=== PATIENT | female | born 1930 | race African-American/Black ===

== ENCOUNTER 2016-12-18 15:03 | Emergency (ER) | payer MEDICARE, BC ==
[~2016-12-18] VITALS: Ht 172.7 cm; Wt 77.2 kg
[~2016-12-18 15:03] MED LIST: AMLO5TAB96 PO; CITA-48 PO; DIAZ2 PO; FERR325T PO; FURO10S PO; LOSA100T PO; MEMA10 PO; OMEP20TA PO; QUET100 PO; SENN1TAB11 PO; ZOCO40TA PO
[2016-12-18 15:04] VITALS: BP 128/61; PULSE 78; RESP 20; TEMP 98.5; O2SAT 98
--- NOTE | 2016-12-18 15:10 | PD ---
Physical Exam Time Seen by Provider: 15:09 Narrative 86 y/o female here with L ankle pain after slipping 3 days ago. Denies any other injuries. Vital signs reviewed. Seen at triage desk. Awaiting bed placement. Data Data Last Documented VS Vital Signs Date Time Temp Pulse Resp B/P Pulse Ox O2 Delivery O2 Flow Rate FiO2 12/18/16 15:04 98.5 78 20 128/61 98 MDM Medical Record Reviewed: Yes Supervised Visit with MARIA ESTHER: Tommy Dave December 18, 2016 15:10
--- NOTE | 2016-12-18 16:37 | RADRPT ---
EXAM DATE/TIME: 12/18/2016 15:21 [facility] COMPARISON: No previous studies available for comparison. INDICATIONS : Left foot pain and swelling after tripping her bathroom. MEDICAL HISTORY : None. SURGICAL HISTORY : None. ENCOUNTER: Initial ACUITY: 1 day PAIN SCORE: 10/10 LOCATION: Left foot. FINDINGS: Three view examination of the left foot demonstrates no soft tissue swelling, dislocation, or fractur e. The tarsal bones appear intact. Osteoarthritis involving the first metatarsal-phalangeal joint. The interphalangeal and metatarsophalangeal joints are intact. The calcaneus is intact. Bony minera lization is reduced. CONCLUSION: No acute disease. Kike Miranda Jr., MD on December 18, 2016 at 16:32 Board Certified Radiologist. This report was verified electronically.
--- NOTE | 2016-12-18 16:44 | RADRPT ---
EXAM DATE/TIME: 12/18/2016 15:23 [facility] COMPARISON: No previous studies available for comparison. INDICATIONS : Left ankle pain and swelling after tripping in her bathroom. MEDICAL HISTORY : None. SURGICAL HISTORY : None. ENCOUNTER: Initial ACUITY: 1 day PAIN SCORE: 10/10 LOCATION: Left ankle. FINDINGS: 3 views of the left ankle reveal an acute nondisplaced fracture involving distal fibular metaphysis. No angulation or distraction. A small avulsion fracture involving the tip of the medial malleolus. No joint effusion. Soft tissue swelling most pronounced laterally. Spurring of the calcaneus. CONCLUSION: Acute fractures involving the distal fibular metaphysis as well as the medial malleolus. Kike Miranda Jr., MD on December 18, 2016 at 16:40 Board Certified Radiologist. This report was verified electronically.
[2016-12-18] MEDS ORDERED: AMLO5TAB2 PO (16:57)
[2016-12-18] MEDS ORDERED: VESI5TAB PO (16:57)
[2016-12-18] MEDS ORDERED: ZOCO40TA PO (16:57)
[2016-12-18] MEDS ORDERED: DIAZ2TAB PO (16:57)
[2016-12-18] MEDS ORDERED: UMEC1AER INH (16:57)
[2016-12-18] MEDS ORDERED: QUET-88 PO (16:57)
[2016-12-18] MEDS ORDERED: CITA40TA4 PO (16:57)
[2016-12-18] MEDS ORDERED: CYAN1TAB24 PO (16:57)
[2016-12-18] MEDS ORDERED: LOSA100T PO (16:57)
[2016-12-18] MEDS ORDERED: MEMA1TAB2 PO (16:57)
[2016-12-18] MEDS ORDERED: KRIL1CAP9 PO (16:57)
[2016-12-18] MEDS ORDERED: FOLI1CAP7 PO (16:57)
--- NOTE | 2016-12-18 17:16 | PD ---
HPI Chief Complaint: Fall Time Seen by Provider: 17:04 Travel History International Travel<30 days: Yes Contact w/Intl Traveler<30days: [place] Traveled to: [place] Traveled to known affect area: No History of Present Illness HPI 86-year-old female with PMH of HTN presents to the ED for evaluation of left ankle pain. Onset 3 days ago after the patient slipped in the bathroom. She states that she did not fall, only lost her balance and recovered. She denies hitting her head or loss of consciousness. She has been minimally ambulatory on the ankle. She endorses 1/10 pain on presentation, 9/10 on attempted ambulation. She denies numbness, tingling, weakness of the extremity. Patients daughter is at bedside and corroborates the patient's account of the incident. This is minimally ambulatory secondary to chronic knee pain. PFSH Past Medical History Arthritis: Yes (KNEES BILAT WITH STAIR CLIMBING) Heart Rhythm Problems: Yes (HX PVC) Cardiovascular Problems: Yes (HTN) High Cholesterol: Yes Diminished Hearing: No Hypertension: Yes Psychiatric: Yes (DEMENTIA) Menopausal: Yes Past Surgical History Gynecologic Surgery: Yes Hysterectomy: Yes Other Surgery: Yes (HYSTERECTOMY, HEMORROIDS) Social History Alcohol Use: No Tobacco Use: No Substance Use: No Allergies-Medications (Allergen,Severity, Reaction): Coded Allergies: Penicillin (Verified Allergy, Severe, Rash, 12/18/16) Reported Meds & Prescriptions Reported Meds & Active Scripts Active Wheelchair Elevated Leg (Device) 1 Mis Mis 1 Ea .ROUTE DIRECTED Naprosyn (Naproxen) 500 Mg Tab 500 Mg PO BID Reported Megared [place]-3 Krill Oil (Krill Oil) 500 Mg Cap 500 Mg PO DAILY B12 (Cyanocobalamin) 1,000 Mcg Tab 1,000 Mcg PO DAILY Folic Acid 800 Mcg Cap 800 Mcg PO DAILY Amlodipine (Amlodipine Besylate) 5 Mg Tab 5 Mg PO DAILY Quetiapine Fumarate ER (Quetiapine Fumarate) 200 Mg Tab 200 Mg PO HS Losartan (Losartan Potassium) 100 Mg Tab 100 Mg PO DAILY Zocor (Simvastatin) 40 Mg Tab 40 Mg PO DAILY Vesicare (Solifenacin) 5 Mg Tab 5 Mg PO DAILY Citalopram (Citalopram Hydrobromide) 40 Mg Tab 40 Mg PO DAILY Memantine 10 Mg Tab 10 Mg PO BID Diazepam 2 Mg Tab 2 Mg PO HS PRN Anoro Ellipta Inh (Umeclidinium/Vilanterol) 62.5-25 Mcg/Act Aero 1 Puff INH DAILY Review of Systems Except as stated in HPI: all other systems reviewed are Neg Physical Exam Narrative GENERAL: Well-nourished, well-developed pleasant black female in no acute distress. SKIN: Focused skin assessment warm/dry. HEAD: Normocephalic. EYES: No scleral icterus. No injection or drainage. NECK: Supple, trachea midline. No JVD or lymphadenopathy. CARDIOVASCULAR: Regular rate and rhythm without murmurs, gallops, or rubs. RESPIRATORY: Breath sounds clear and equal bilaterally. No accessory muscle use. GASTROINTESTINAL: Abdomen soft, non-tender, nondistended. Active bowel sounds. MUSCULOSKELETAL: No cyanosis. FOCUSED LEFT LOWER EXTREMITY EXAM: 2+ DP pulse. 1+ pitting edema of the foot and ankle. Squeeze test positive. Tender to palpation of the bilateral malleoli. She is able to weakly flex and extend the ankle though this does elicit pain. She is able to flex and extend the toes. Sensation intact to light touch distally. Cap refill less than 2 seconds. BACK: Nontender without obvious deformity. No CVA tenderness. Data Data Last Documented VS Vital Signs Date Time Temp Pulse Resp B/P Pulse Ox O2 Delivery O2 Flow Rate FiO2 12/18/16 15:04 98.5 78 20 128/61 98 Orders Ankle, Complete ([id number]) (12/18/16 ) Foot, Complete ([id number]) (12/18/16 ) Splinting (12/18/16 ) MDM Medical Decision Making Medical Screen Exam Complete: Yes Emergency Medical Condition: Yes Differential Diagnosis Ankle sprain versus tibial fracture versus fibular fracture versus high ankle sprain versus muscular skeletal pain versus other Narrative Course 86-year-old female with PMH of HTN presents to the ED for evaluation of left ankle pain. Onset 3 days ago after the patient slipped in the bathroom. She states that she did not fall, only lost her balance and recovered. She denies hitting her head or loss of consciousness. She has been minimally ambulatory on the ankle. She endorses 1/10 pain on presentation, 9/10 on attempted ambulation. She denies numbness, tingling, weakness of the extremity. Patients daughter is at bedside and corroborates the patient's account of the incident. Vitals reviewed. Physical exam reveals a pleasant female in no acute distress. FOCUSED LEFT LOWER EXTREMITY EXAM: 2+ DP pulse. 1+ pitting edema of the foot and ankle. Squeeze test positive. Tender to palpation of the bilateral malleoli. She is able to weakly flex and extend the ankle though this does elicit pain. She is able to flex and extend the toes. Sensation intact to light touch distally. Cap refill less than 2 seconds. X-ray reveals nondisplaced fracture of the distal fibular metaphysis without distraction or angulation. There is also a small avulsion fracture of the medial malleolus. No effusion. Short sugar tong cast ordered. Call placed to the on-call orthopedist, Dr. Sigala. Dr. Huerta states that this is nonoperative and the patient can follow-up in the office. Patient was provided a course of Naprosyn , instructed to follow up with Dr. Huerta office tomorrow. She uses a wheelchair for long periods of ambulation at home. Patient and her daughter indicated understanding of instructions and are agreeable to the care plan. The patient is stable and discharged home. Diagnosis Primary Impression: Closed left ankle fracture Qualified Code: S82.892A - Closed left ankle fracture, initial encounter Referrals: John Huerta MD Patient Instructions: Ankle Fracture (ED), General Instructions Additional Instructions: Rest, ice, elevate the extremity. Apply ice no longer than 10-15 minutes per hour a few times a day. Naprosyn as needed for pain and inflammation Return to normal, gentle activity as tolerated. Call Dr. Huerta office tomorrow for follow-up appointment. Return to the ED for any urgent or emergent medical condition. Med/Other Pt SpecificInfo: Prescription(s) given Scripts Wheelchair Elevated Leg 1 Mis Mis #1 EA .ROUTE DIRECTED Ref 0 Prov:Raquel Monson MD 12/18/16 Naproxen (Naprosyn)500 Mg [id number] Mg PO BID #20 TAB Ref 0 Prov:Raquel Monson MD 12/18/16 Disposition: 01 DISCHARGE HOME Condition: Stable Rufina Rocha December 18, 2016 17:16
[2016-12-18] MEDS ORDERED: NAPR500 PO (17:34)
[2016-12-18] MEDS ORDERED: WHEEMIS3 ×2 (17:34→17:36)
== END 2016-12-18 18:44 | disposition home or self-care (01) ==
LOC: NEPD 15:03
DX: S82.832A Other fracture of upper and lower end of left fibula, initial encounter for closed fracture (principal); S82.55XA Nondisplaced fracture of medial malleolus of left tibia, initial encounter for closed fracture; I10 Essential (primary) hypertension; E78.00 Pure hypercholesterolemia, unspecified; F03.90 Unspecified dementia, unspecified severity, without behavioral disturbance, psychotic disturbance, mood disturbance, and anxiety; W01.0XXA Fall on same level from slipping, tripping and stumbling without subsequent striking against object, initial encounter; Y93.E1 Activity, personal bathing and showering; Y92.002 Bathroom of unspecified non-institutional (private) residence as the place of occurrence of the external cause; Y99.8 Other external cause status
CPT/HCPCS: 29515; 73610; 73630

== ENCOUNTER 2017-02-20 18:33 | Inpatient (IN) | payer MEDICARE, BC ==
[~2017-02-20] VITALS: Ht 172.7 cm; Wt 80.6 kg
[~2017-02-20 18:33] MED LIST changes: +AMLO5TAB2 PO; -AMLO5TAB96 PO; -CITA-48 PO; +CITA40TA4 PO; +CYAN1TAB24 PO; -DIAZ2 PO; +DIAZ2TAB PO; -FERR325T PO; +FOLI1CAP7 PO; -FURO10S PO; +KRIL1CAP9 PO; -MEMA10 PO; +MEMA1TAB2 PO; +NAPR500 PO; -OMEP20TA PO; +QUET-88 PO; -QUET100 PO; -SENN1TAB11 PO; +UMEC1AER INH; +VESI5TAB PO; +WHEEMIS3
[2017-02-20 18:41] VITALS: BP 165/72; PULSE 90; RESP 18; TEMP 98.2; O2SAT 97
--- NOTE | 2017-02-20 19:55 | PD ---
HPI Chief Complaint: Pain: Acute or Chronic Time Seen by Provider: 18:44 Travel History International Travel<30 days: No Contact w/Intl Traveler<30days: No Traveled to known affect area: No History of Present Illness HPI 86-year-old female brought in by ambulance from home after her daughter called 911. Initially EMS reported that the patient has been having left knee pain which is chronic, yet worse today. Patient denies having knee pain. She is not sure why she is in the emergency department. About an hour after the patient's arrival, the patient's daughter arrived at the bedside. 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 6 days ago the patient had a cortisone injection in her left knee for osteoarthritis. Since the injection she has not really been acting like herself, and has had frequent falls, and refuses to walk. She states that the patient has not appeared to injure herself during these falls as she slowly lowers herself to the ground, however the patient is usually able to walk with a walker and has been unable to do so for last couple of days. Daughter states that the patient's symptoms appeared to be worse today, therefore she called 911 to bring her to the emergency department for further evaluation. Patient denies any physical complaints. She does have a fracture boot on her left ankle which was placed in December of this year after a closed ankle fracture. PFSH Past Medical History Arthritis: Yes (KNEES BILAT WITH STAIR CLIMBING) Heart Rhythm Problems: Yes (HX PVC) Cardiovascular Problems: Yes (HTN) High Cholesterol: Yes Diminished Hearing: No Hypertension: Yes Psychiatric: Yes (DEMENTIA) ?: Not Menopausal: Yes Past Surgical History Gynecologic Surgery: Yes Hysterectomy: Yes Other Surgery: Yes (HYSTERECTOMY, HEMORROIDS) Social History Alcohol Use: No Tobacco Use: No Substance Use: No Allergies-Medications (Allergen,Severity, Reaction): Coded Allergies: Penicillin (Verified Allergy, Severe, Rash, 02/20/17) Reported Meds & Prescriptions Reported Meds & Active Scripts Active Wheelchair Elevated Leg (Device) 1 Mis Mis 1 Ea .ROUTE DIRECTED Reported Megared Anderson-3 Krill Oil (Krill Oil) 500 Mg Cap 500 Mg PO DAILY B12 (Cyanocobalamin) 1,000 Mcg Tab 1,000 Mcg PO DAILY Folic Acid 800 Mcg Cap 800 Mcg PO DAILY Amlodipine (Amlodipine Besylate) 5 Mg Tab 5 Mg PO DAILY Quetiapine Fumarate ER (Quetiapine Fumarate) 200 Mg Tab 200 Mg PO HS Losartan (Losartan Potassium) 100 Mg Tab 100 Mg PO DAILY Zocor (Simvastatin) 40 Mg Tab 40 Mg PO DAILY Vesicare (Solifenacin) 5 Mg Tab 5 Mg PO DAILY Citalopram (Citalopram Hydrobromide) 40 Mg Tab 40 Mg PO DAILY Memantine 10 Mg Tab 10 Mg PO BID Diazepam 2 Mg Tab 2 Mg PO HS PRN Anoro Ellipta Inh (Umeclidinium/Vilanterol) 62.5-25 Mcg/Act Aero 1 Puff INH DAILY Review of Systems Except as stated in HPI: all other systems reviewed are Neg Physical Exam Narrative GENERAL: Well-developed, well-nourished, awake, alert, no apparent distress. SKIN: Focused skin assessment warm/dry. No rash. Slight ecchymosis to right anterior knee. No lacerations or abrasions. HEAD: Atraumatic. Normocephalic. EYES: Pupils equal and round. No scleral icterus. No injection or drainage. ENT: Mucous membranes pink and moist. NECK: Trachea midline. No JVD. No nuchal rigidity. CARDIOVASCULAR: Regular rate and rhythm. Distal pulses brisk and equal bilaterally. RESPIRATORY: No accessory muscle use. Clear to auscultation. Breath sounds equal bilaterally. GASTROINTESTINAL: Abdomen soft, non-tender, nondistended. MUSCULOSKELETAL: Left ankle with fracture boot in place. This boot was removed and the skin to the left leg is intact without erythema, without ulcerations, without any lesions. Patient has normal range of motion in all joints and extremities. Bilateral knees are nontender, no warmth or erythema. Pelvis is stable without tenderness. NEUROLOGICAL: Awake and alert. No obvious cranial nerve deficits. Motor grossly within normal limits. Normal speech. PSYCHIATRIC: Appropriate mood and affect; insight and judgment normal. Data Data Last Documented VS Vital Signs Date Time Temp Pulse Resp B/P Pulse Ox O2 Delivery O2 Flow Rate FiO2 02/20/17 18:41 98.2 90 18 165/72 97 Orders Complete Blood Count With Diff (02/20/17 19:47) Comprehensive Metabolic Panel (02/20/17 19:47) Prothrombin Time / Inr (Pt) (02/20/17 19:47) Act Partial Throm Time (Ptt) (02/20/17 19:47) Urinalysis - C+S If Indicated (02/20/17 19:47) Iv Access Insert/Monitor (02/20/17 19:47) Ecg Monitoring (02/20/17 19:47) Oximetry (02/20/17 19:47) Sodium Chloride 0.9% Flush (Ns Flush) (02/20/17 20:00) Cath For Specimen (02/20/17 19:47) MDM Medical Decision Making Medical Screen Exam Complete: Yes Emergency Medical Condition: Yes Differential Diagnosis Delirium, steroid induce psychosis, metabolic abnormality, osteoarthritis, chronic pain, septic arthritis unlikely, meningitis unlikely Narrative Course Case discussed with the patient's primary care physician Dr. Sen Abdullahi. 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 He agrees that the patient is not safe for discharge as she has been having frequent falls, and may injure herself. Although the patient is awake and alert and answers some questions appropriately, the patient's daughter replies that she is not acting like her usual self. There are no signs of any trauma on exam. Dr. Abdullahi will admit the patient to his service. Labs and UA pending at time of admission. Diagnosis Primary Impression: Delirium Additional Impressions: Generalized weakness Frequent falls Inability to ambulate due to knee Admitting Information Admitting Physician Requests: Admit Thony Matta MD Feb 20, 2017 19:55
[2017-02-20] MEDS ORDERED: SODIUM CHLORIDE 0.9% FLUSH 10 ML FLUSH IV FLUSH PRN ×2 (20:00→22:30)
[2017-02-20 20:42] LABS: BACTERIA, URINE RARE /hpf; BLOOD, URINE NEG (NEG); COMMENT (UR) CULT NOT INDICATED; CULTURE IF INDICATED CULT NOT INDICATED; GLUCOSE,URINE NEG (NEG); KETONE, URINE NEG (NEG); NITRITE,URINE NEG (NEG); PH, URINE 5.5 (5.0-8.5); SQUAMOUS EPITHELIAL CELL URINE <1 /hpf (0-5); URINE COLOR YELLOW (YELLW/STRAW)
[2017-02-20 20:48] LABS: AUTOMATED NEUTROPHIL # 6.1 TH/MM3 (1.8-7.7); BASOPHIL % 0.1 % (0.0-2.0); HEMATOCRIT 33.3 % (35.0-46.0); HEMO FLAGS DIFF FINAL; LYMPH % 15.2 % (9.0-44.0); LYMPHOCYTE # 1.3 TH/MM3 (1.0-4.8); MONO % 15.3 % (0.0-8.0); NEUT % 69.4 % (16.0-70.0); PLATELET COUNT 299 TH/MM3 (150-450); RED BLOOD COUNT 4.27 MIL/MM3 (4.00-5.30); RED CELL DISTRIBUTION WIDTH 16.5 % (11.6-17.2); WHITE BLOOD COUNT 8.7 TH/MM3 (4.0-11.0)
[2017-02-20 20:52] LABS: ANION GAP 8 MEQ/L (5-15); AST (GOT) 58 U/L (15-37); BLOOD UREA NITROGEN 29 MG/DL (7-18); CHLORIDE 105 MEQ/L (98-107); GLOMERULAR FILTRATION RATE 65 ML/MIN (>89); POTASSIUM 4.5 MEQ/L (3.5-5.1); SODIUM (NA) 140 MEQ/L (136-145)
[2017-02-20 20:56] LABS: ALKALINE PHOSPHATASE 551 U/L (45-117); ALT (GPT) 62 U/L (10-53); TOTAL BILIRUBIN ADULT 0.4 MG/DL (0.2-1.0)
[2017-02-20 20:57] LABS: APTT (PATIENT) 25.1 SEC (24.3-30.1); PROTHROMBIN TIME - PATIENT 10.7 SEC (9.8-11.6)
[2017-02-20 21:20] VITALS: RESP 18; O2SAT 98
[2017-02-20] MEDS: SODIUM CHLOR 0.9% 1000 ML INJ 1,000 ML IV SCH (22:17)
[2017-02-20] MEDS ORDERED: ONDANSETRON HCL 4 MG/2 ML VIAL IVP PRN (22:30)
[2017-02-20] MEDS ORDERED: MAGNESIUM HYDROXIDE SUSP 30 ML CUP PO PRN (22:30)
[2017-02-20] MEDS ORDERED: LACTULOSE SYRUP 20 GM/30 ML CUP PO PRN (22:30)
[2017-02-20] MEDS ORDERED: DIAZEPAM 2 MG TAB PO PRN (22:30)
[2017-02-20] MEDS ORDERED: SENNOSIDES 8.6 MG TAB PO PRN (22:30)
[2017-02-20] MEDS ORDERED: ACETAMINOPHEN 325 MG TAB PO PRN (22:30)
[2017-02-20] MEDS ORDERED: NALOXONE HCL 0.4 MG/ML AMP IV PRN (22:30)
[2017-02-20] MEDS ORDERED: BISACODYL 10 MG SUPP RECTAL PRN (22:30)
[2017-02-20] MEDS: HEPARIN SODIUM - SQ 10,000 UNITS/ML VIAL SQ SCH (23:22)
[2017-02-20] MEDS: QUEtiapine FUMARATE 100 MG TAB PO SCH (23:22)
[2017-02-20 23:28] VITALS: BP 139/71; PULSE 77; RESP 17; TEMP 98.2; O2SAT 96
[2017-02-21 04:01] VITALS: BP 147/65; PULSE 70; RESP 16; TEMP 98.2; O2SAT 99
[2017-02-21 07:14] LABS: AUTOMATED NEUTROPHIL # 4.7 TH/MM3 (1.8-7.7); BASOPHIL % 0.1 % (0.0-2.0); HEMATOCRIT 32.6 % (35.0-46.0); HEMO FLAGS DIFF FINAL; LYMPH % 22.1 % (9.0-44.0); LYMPHOCYTE # 1.7 TH/MM3 (1.0-4.8); MEAN CELL VOLUME 79.1 FL (80.0-100.0); MEAN CORPUSCULAR HEMOGLOBIN 24.7 PG (27.0-34.0); MEAN CORPUSCULAR HGB CONC 31.2 % (32.0-36.0); MONO % 15.4 % (0.0-8.0); NEUT % 62.4 % (16.0-70.0); PLATELET COUNT 308 TH/MM3 (150-450); RED BLOOD COUNT 4.12 MIL/MM3 (4.00-5.30); RED CELL DISTRIBUTION WIDTH 16.4 % (11.6-17.2); WHITE BLOOD COUNT 7.6 TH/MM3 (4.0-11.0)
[2017-02-21 07:35] LABS: BICARBONATE 25.7 MEQ/L (21.0-32.0); POTASSIUM 4.3 MEQ/L (3.5-5.1)
[2017-02-21 07:39] LABS: INDIRECT BILIRUBIN 0.3 MG/DL (0.0-0.8); TOTAL BILIRUBIN ADULT 0.5 MG/DL (0.2-1.0)
--- NOTE | 2017-02-21 07:46 | HHI.HP ---
History of Present Illness Service INTERNAL MEDICINE Primary Care Physician SEN ABDULLAHI M.D. Admission Diagnosis ACUTE METABOLIC ENCEPHALOPATHY. DEHYDRATION. MULTIPLE FALLS. INABILITY TO AMBULATE. Diagnoses: History of Present Illness This patient is an 86 year old female who has a history of being found with a change in her mentation. She was also with a history of having falls, but does not appear to hurt herself with the falls. She has a recent history of requiring the use of a walking boot for the left ankle area secondary to the presence of a left ankle fracture. She was treated recently by Orthopedic Surgery with a steroid injection to the knee. She began with somewhat bizarre behavior that was totally unlike her usual self. She also was unable to do any ambulatory activity at all for the past two days. Due to the change in her sensorium and the inability to ambulate, she was transported to the [facility] for evaluation. She is found in need of inpatient hospitalization in this regard. Review of Systems Constitutional: COMPLAINS OF: Fatigue, Weight loss, Change in appetite Cardiovascular: COMPLAINS OF: Dyspnea on Exertion Musculoskeletal: COMPLAINS OF: Joint pain, Stiffness Neurologic: COMPLAINS OF: Poor Balance Past Family Social History Allergies: Coded Allergies: Penicillin (Verified Allergy, Severe, Rash, 02/20/17) Past Medical History 1. Hypertension. 2. Hyperlipidemia. 3. Osteoarthritis. 4. Anxiety Disorder. 5. Seasonal Allergies. 6. Gastroesophageal Reflux Disease. 7. Dementia with Short Term Memory Loss. 8. Chronic Kidney Disease, Stage 2. 9. Schizophrenia. 10. Overactive Bladder. 11. Cholelithiasis. 12. Gallbladder Mass. Past Surgical History 1. Hysterectomy. 2. Hemorrhoidectomy. 3. Colonoscopy. Family History Father= at age 74 with history of Pancreatic Cancer. Mother= at age 63 with history of Cerebral Vascular Accident. Brother= at age 81 with a history of Liver Disease. 2 Sisters= in their 40's with both having a history of Liver Disease secondary to alcohol abuse. 3 Children=ages 61, 60 and 57. Social History She is and lives at home with her . The has Severe Parkinson's Disease. Her daughter is a maritime guard patching machine operator for her and her . She is a nonsmoker and nondrinker. 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 She makes no use of recreational drugs. Physical Exam Vital Signs Vital Signs Date Time Temp Pulse Resp B/P Pulse Ox O2 Delivery O2 Flow Rate FiO2 02/21/17 04:01 98.2 70 16 147/65 99 02/20/17 23:28 98.2 77 17 139/71 96 02/20/17 21:20 18 98 Room Air 02/20/17 18:41 98.2 90 18 165/72 97 Physical Exam GENERAL: This is a well-nourished, well-developed patient, in no apparent distress. SKIN: No rashes, ecchymoses or lesions. Cool and dry. HEAD: Atraumatic. Normocephalic. No temporal or scalp tenderness. EYES: Pupils equal round and reactive. Extraocular motions intact. No scleral icterus. No injection or drainage. ENT: Nose without bleeding, purulent drainage or septal hematoma. Throat without erythema, tonsillar hypertrophy or exudate. Uvula midline. Airway patent. NECK: Trachea midline. No JVD or lymphadenopathy. Supple, nontender, no meningeal signs. CARDIOVASCULAR: Regular rate and rhythm without murmurs, gallops, or rubs. RESPIRATORY: Clear to auscultation. Breath sounds equal bilaterally. No wheezes , rales, or rhonchi. GASTROINTESTINAL: Abdomen soft, non-tender, nondistended. No hepato-splenomegaly , or palpable masses. No guarding. MUSCULOSKELETAL: Extremities without clubbing or cyanosis. There is tenderness at the left knee with mild edema of the distal legs. No calf tenderness. Negative Homans sign bilaterally. NEUROLOGICAL: Awake and alert. Cranial nerves II through XII intact. Motor and sensory grossly within normal limits. Five out of 5 muscle strength in all muscle groups. Normal speech. Laboratory Laboratory Tests Test 02/20/17 02/21/17 02/21/17 20:20 06:35 06:40 White Blood Count 8.7 7.6 Red Blood Count 4.27 4.12 Hemoglobin 10.7 10.2 Hematocrit 33.3 32.6 Mean Corpuscular Volume 78.0 79.1 Mean Corpuscular Hemoglobin 25.0 24.7 Mean Corpuscular Hemoglobin 32.0 31.2 Concent Red Cell Distribution Width 16.5 16.4 Platelet Count 299 308 Mean Platelet Volume 8.6 8.0 Neutrophils (%) (Auto) 69.4 62.4 Lymphocytes (%) (Auto) 15.2 22.1 Monocytes (%) (Auto) 15.3 15.4 Eosinophils (%) (Auto) 0.0 0.0 Basophils (%) (Auto) 0.1 0.1 Neutrophils # (Auto) 6.1 4.7 Lymphocytes # (Auto) 1.3 1.7 Monocytes # (Auto) 1.3 1.2 Eosinophils # (Auto) 0.0 0.0 Basophils # (Auto) 0.0 0.0 CBC Comment DIFF FINAL DIFF FINAL Differential Comment Prothrombin Time 10.7 Prothromb Time International 1.0 Ratio Activated Partial 25.1 Thromboplast Time Urine Color YELLOW Urine Turbidity CLEAR Urine pH 5.5 Urine Specific [place] 1.016 Urine Protein TRACE Urine Glucose (UA) NEG Urine Ketones NEG Urine Occult Blood NEG Urine Nitrite NEG Urine Bilirubin NEG Urine Urobilinogen LESS THAN 2.0 Urine Leukocyte Esterase NEG Urine RBC LESS THAN 1 Urine WBC LESS THAN 1 Urine Squamous Epithelial <1 Cells Urine Bacteria RARE Microscopic Urinalysis Comment CULT NOT INDICATED Sodium Level 140 141 Potassium Level 4.5 4.3 Chloride Level 105 107 Carbon Dioxide Level 27.0 25.7 Anion Gap 8 8 Blood Urea Nitrogen 29 25 Creatinine 0.98 1.00 Estimat Glomerular Filtration 65 64 Rate Random Glucose 105 113 Calcium Level 10.1 10.1 Total Bilirubin 0.4 0.5 Aspartate Amino Transf 58 42 (AST/SGOT) Alanine Aminotransferase 62 51 (ALT/SGPT) Alkaline Phosphatase 551 523 Total Protein 7.9 7.3 Albumin 3.2 2.9 Iron Level 76 Ferritin 39 Direct Bilirubin 0.2 Indirect Bilirubin 0.3 Gamma Glutamyl Transpeptidase 425 Carcinoembryonic Antigen 3.0 Result Diagram: 02/21/17 0640 02/21/17 0635 Assessment and Plan Assessment and Plan ASSESSMENT 1. Acute Metabolic Encephalopathy. 2. Elevated Hepatic Enzymes. 3. Dehydration. 4. Multiple Falls. 5. Inability to Ambulate. 6. Hypertension. 7. Advanced Osteoarthritis. 8. Dementia with Memory Loss. 9. Chronic Schizophrenia. PLAN 1. Admit to the hospital as an Inpatient. 2. Intravenous hydration. 3. Monitor Intake and Output. 4. Physical Therapy Evaluation. 5. Follow up laboratory assessment. 6. Use of home medications, as needed. 7. DVT and PE prophylaxis. Sen Abdullahi MD Feb 21, 2017 07:46
[2017-02-21 08:00] VITALS: BP 134/61; PULSE 76; RESP 20; TEMP 98.5; O2SAT 98
[2017-02-21] MEDS: CITALOPRAM HYDROBROMIDE 40 MG TAB PO SCH (11:19)
[2017-02-21] MEDS: SODIUM CHLORIDE 0.9% FLUSH 10 ML FLUSH IV FLUSH SCH ×2 (11:19→20:34)
[2017-02-21] MEDS: amLODIPine BESYLATE 5 MG TAB PO SCH (11:20)
[2017-02-21] MEDS: UMECLIDINIUM 62.5 MCG/VILANTEROL 25 MCG INHALER INH SCH (11:20)
[2017-02-21] MEDS: LOSARTAN 50 MG TAB PO SCH (11:21)
[2017-02-21] MEDS: QUEtiapine FUMARATE 100 MG TAB PO SCH ×2 (11:22→21:02)
[2017-02-21] MEDS: MEMANTINE HCL 10 MG TAB PO SCH ×2 (11:22→21:02)
[2017-02-21] MEDS: HEPARIN SODIUM - SQ 10,000 UNITS/ML VIAL SQ SCH ×2 (11:22→21:03)
[2017-02-21] MEDS: CYANOCOBALAMIN 1,000 MCG TAB PO SCH (11:22)
[2017-02-21] MEDS: FOLIC ACID 1 MG TAB PO SCH (11:22)
[2017-02-21 12:00] VITALS: BP 134/58; PULSE 70; RESP 20; TEMP 98.3; O2SAT 99
[2017-02-21] MEDS: DOCUSATE SODIUM 50 MG/SENNA 8.6 MG TAB PO SCH ×2 (12:46→21:02)
[2017-02-21] MEDS: TOLTERODINE TARTRATE 2 MG CAP LA PO SCH (12:46)
[2017-02-21] MEDS: SODIUM CHLOR 0.9% 1000 ML INJ 1,000 ML IV SCH ×2 (12:47→21:49)
[2017-02-21 16:00] VITALS: BP 173/71; PULSE 72; RESP 20; TEMP 98; O2SAT 97
[2017-02-21 20:00] VITALS: BP 145/67; PULSE 80; RESP 17; TEMP 95.9; O2SAT 98
[2017-02-22] VITALS: BP 129/62; PULSE 79; RESP 17; TEMP 96.8; O2SAT 98
[2017-02-22 04:00] VITALS: BP 121/60; PULSE 72; RESP 17; TEMP 96.2; O2SAT 98
[2017-02-22 08:00] VITALS: BP 150/70; PULSE 79; RESP 20; TEMP 96.8; O2SAT 99
--- NOTE | 2017-02-22 08:14 | HHI.PR ---
Subjective Remarks She is resting in bed and appears to be in no acute distress this morning. She is tolerating the current treatment regimen. Objective - Vital Signs Date Time Temp Pulse Resp B/P Pulse Ox O2 Delivery O2 Flow Rate FiO2 02/22/17 04:00 96.2 72 17 121/60 98 02/22/17 00:00 96.8 79 17 129/62 98 02/21/17 20:00 95.9 80 17 145/67 98 02/21/17 16:00 98.0 72 20 173/71 97 02/21/17 12:00 98.3 70 20 134/58 99 I/O 02/21/17 02/21/17 02/21/17 02/22/17 02/22/17 02/22/17 06:59 14:59 22:59 06:59 14:59 22:59 Intake Total 250 ml 360 ml 240 ml 240 ml Balance 250 ml 360 ml 240 ml 240 ml Intake Oral 250 ml 360 ml 240 ml 240 ml # Voids 2 3 2 Result Diagram: 02/21/17 0640 02/21/17 0635 Objective Remarks GENERAL: Alert and appears to be oriented. SKIN: Warm and dry. HEAD: Normocephalic. EYES: No scleral icterus. No injection or drainage. NECK: Supple, trachea midline. No JVD or lymphadenopathy. CARDIOVASCULAR: Regular rate and rhythm without murmurs, gallops, or rubs. RESPIRATORY: Breath sounds equal bilaterally. No accessory muscle use. GASTROINTESTINAL: Abdomen soft, non-tender, nondistended. MUSCULOSKELETAL: No cyanosis. There is mild edema of the distal legs. BACK: Nontender without obvious deformity. No CVA tenderness. A/P Assessment and Plan ASSESSMENT 1. Acute Metabolic Encephalopathy. 2. Elevated Hepatic Enzymes. 3. Dehydration. 4. Multiple Falls. 5. Inability to Ambulate. 6. Hypertension. 7. Advanced Osteoarthritis. 8. Dementia with Memory Loss. 9. Chronic Schizophrenia. PLAN 1. Continue with the current treatment plan. 2. Taper intravenous hydration toward discontinuance. 3. Monitor Intake and Output. 4. Physical Therapy treatment. 5. Follow up laboratory assessment. 6. Cotinue use of home medications as needed. 7. DVT and PE prophylaxis. Sen Abdullahi MD Feb 22, 2017 08:14
[2017-02-22] MEDS: TOLTERODINE TARTRATE 2 MG CAP LA PO SCH (09:00)
[2017-02-22] MEDS: SODIUM CHLORIDE 0.9% FLUSH 10 ML FLUSH IV FLUSH SCH ×2 (09:00→21:00)
[2017-02-22] MEDS: MEMANTINE HCL 10 MG TAB PO SCH ×2 (09:20→21:58)
[2017-02-22] MEDS: DOCUSATE SODIUM 50 MG/SENNA 8.6 MG TAB PO SCH ×2 (09:20→21:58)
[2017-02-22] MEDS: LOSARTAN 50 MG TAB PO SCH (09:20)
[2017-02-22] MEDS: QUEtiapine FUMARATE 100 MG TAB PO SCH ×2 (09:21→21:58)
[2017-02-22] MEDS: FOLIC ACID 1 MG TAB PO SCH (09:21)
[2017-02-22] MEDS: SODIUM CHLOR 0.9% 1000 ML INJ 1,000 ML IV SCH ×2 (09:21→21:58)
[2017-02-22] MEDS: CITALOPRAM HYDROBROMIDE 40 MG TAB PO SCH (09:21)
[2017-02-22] MEDS: amLODIPine BESYLATE 5 MG TAB PO SCH (09:21)
[2017-02-22] MEDS: CYANOCOBALAMIN 1,000 MCG TAB PO SCH (09:27)
[2017-02-22] MEDS: UMECLIDINIUM 62.5 MCG/VILANTEROL 25 MCG INHALER INH SCH (09:29)
[2017-02-22] MEDS ORDERED: PNEUMOCOCCAL POLYVALENT INJ 25 MCG/0.5 ML SYR IM ONE (10:00)
[2017-02-22 10:09] LABS: AUTOMATED NEUTROPHIL # 4.9 TH/MM3 (1.8-7.7); HEMATOCRIT 30.6 % (35.0-46.0); HEMO FLAGS DIFF FINAL; LYMPH % 20.6 % (9.0-44.0); LYMPHOCYTE # 1.6 TH/MM3 (1.0-4.8); MEAN CELL VOLUME 79.5 FL (80.0-100.0); MEAN CORPUSCULAR HEMOGLOBIN 24.2 PG (27.0-34.0); MEAN CORPUSCULAR HGB CONC 30.5 % (32.0-36.0); MONO % 15.6 % (0.0-8.0); NEUT % 63.8 % (16.0-70.0); PLATELET COUNT 290 TH/MM3 (150-450); RED BLOOD COUNT 3.85 MIL/MM3 (4.00-5.30); RED CELL DISTRIBUTION WIDTH 16.3 % (11.6-17.2); WHITE BLOOD COUNT 7.7 TH/MM3 (4.0-11.0)
[2017-02-22 10:27] LABS: MAGNESIUM 2.1 MG/DL (1.5-2.5); POTASSIUM 4.5 MEQ/L (3.5-5.1)
[2017-02-22 10:30] LABS: INDIRECT BILIRUBIN 0.3 MG/DL (0.0-0.8); TOTAL BILIRUBIN ADULT 0.4 MG/DL (0.2-1.0)
[2017-02-22] MEDS: HEPARIN SODIUM - SQ 10,000 UNITS/ML VIAL SQ SCH ×2 (11:07→21:58)
[2017-02-22 12:00] VITALS: BP 177/79; PULSE 79; RESP 20; TEMP 96.2; O2SAT 99
[2017-02-22 16:00] VITALS: BP 150/68; PULSE 79; RESP 20; TEMP 97.5; O2SAT 99
[2017-02-22 20:00] VITALS: BP 157/82; PULSE 80; RESP 18; TEMP 96.8; O2SAT 99
[2017-02-23] VITALS (8 sets, daily range): BP systolic 133–199; BP diastolic 66–91; PULSE 70–97; RESP 17–19; TEMP 97–98.7; O2SAT 97–99
[2017-02-23] MEDS: SODIUM CHLORIDE 0.9% FLUSH 10 ML FLUSH IV FLUSH SCH ×2 (09:00→20:30)
[2017-02-23] MEDS: CYANOCOBALAMIN 1,000 MCG TAB PO SCH (09:50)
[2017-02-23] MEDS: FOLIC ACID 1 MG TAB PO SCH (09:50)
[2017-02-23] MEDS: amLODIPine BESYLATE 5 MG TAB PO SCH (09:50)
[2017-02-23] MEDS: MEMANTINE HCL 10 MG TAB PO SCH ×2 (09:50→20:30)
[2017-02-23] MEDS: TOLTERODINE TARTRATE 2 MG CAP LA PO SCH (09:51)
[2017-02-23] MEDS: DOCUSATE SODIUM 50 MG/SENNA 8.6 MG TAB PO SCH ×2 (09:51→20:30)
[2017-02-23] MEDS: CITALOPRAM HYDROBROMIDE 40 MG TAB PO SCH (09:51)
[2017-02-23] MEDS: QUEtiapine FUMARATE 100 MG TAB PO SCH ×2 (09:51→20:30)
[2017-02-23] MEDS: LOSARTAN 50 MG TAB PO SCH (09:51)
[2017-02-23] MEDS: SODIUM CHLOR 0.9% 1000 ML INJ 1,000 ML IV SCH (09:52)
[2017-02-23] MEDS: HEPARIN SODIUM - SQ 10,000 UNITS/ML VIAL SQ SCH ×2 (09:52→20:30)
[2017-02-23] MEDS: UMECLIDINIUM 62.5 MCG/VILANTEROL 25 MCG INHALER INH SCH (09:52)
[2017-02-23 11:32] LABS: AUTOMATED NEUTROPHIL # 3.6 TH/MM3 (1.8-7.7); BASOPHIL % 0.1 % (0.0-2.0); HEMATOCRIT 31.5 % (35.0-46.0); HEMO FLAGS DIFF FINAL; LYMPH % 20.9 % (9.0-44.0); LYMPHOCYTE # 1.2 TH/MM3 (1.0-4.8); MEAN CELL VOLUME 78.9 FL (80.0-100.0); MEAN CORPUSCULAR HEMOGLOBIN 24.7 PG (27.0-34.0); MEAN CORPUSCULAR HGB CONC 31.3 % (32.0-36.0); MONO % 17.2 % (0.0-8.0); NEUT % 61.8 % (16.0-70.0); PLATELET COUNT 285 TH/MM3 (150-450); RED CELL DISTRIBUTION WIDTH 16.7 % (11.6-17.2); WHITE BLOOD COUNT 5.8 TH/MM3 (4.0-11.0)
[2017-02-23 11:52] LABS: BICARBONATE 28.5 MEQ/L (21.0-32.0); POTASSIUM 4.1 MEQ/L (3.5-5.1)
[2017-02-23 11:54] LABS: INDIRECT BILIRUBIN 0.2 MG/DL (0.0-0.8); TOTAL BILIRUBIN ADULT 0.3 MG/DL (0.2-1.0)
--- NOTE | 2017-02-23 15:24 | RADRPT ---
EXAM DATE/TIME: 02/23/2017 15:04 [facility] COMPARISON: No previous studies available for comparison. INDICATIONS : Left femur pain after fall over a month ago. MEDICAL HISTORY : None. SURGICAL HISTORY : None. ENCOUNTER: Initial ACUITY: 1 month PAIN SCORE: 5/10 LOCATION: Left femur FINDINGS: Two view examination of the left femur demonstrates no evidence of fracture or dislocation. Bony min eralization is normal. Soft tissue swelling. Slight deformity of the patella likely old injury. There is no joint effusion. CONCLUSION: 1. Slight deformity of the patella with joint effusion, appears old although an acute fracture cannot be excluded. 2. No femoral fracture. Olvin Moseley MD on February 23, 2017 at 15:21 Board Certified Radiologist. This report was verified electronically.
[2017-02-23] MEDS ORDERED: cloNIDine HCL 0.2 MG TAB PO ONE (18:15)
[2017-02-24] VITALS (7 sets, daily range): BP systolic 123–147; BP diastolic 58–73; PULSE 61–76; RESP 16–18; TEMP 96.9–99.4; O2SAT 95–98
[2017-02-24] MEDS: SODIUM CHLORIDE 0.9% FLUSH 10 ML FLUSH IV FLUSH SCH ×2 (09:53→20:40)
[2017-02-24] MEDS: CITALOPRAM HYDROBROMIDE 40 MG TAB PO SCH (09:54)
[2017-02-24] MEDS: amLODIPine BESYLATE 5 MG TAB PO SCH (09:54)
[2017-02-24] MEDS: HEPARIN SODIUM - SQ 10,000 UNITS/ML VIAL SQ SCH ×2 (09:54→20:31)
[2017-02-24] MEDS: LOSARTAN 50 MG TAB PO SCH (09:54)
[2017-02-24] MEDS: TOLTERODINE TARTRATE 2 MG CAP LA PO SCH (09:54)
[2017-02-24] MEDS: CYANOCOBALAMIN 1,000 MCG TAB PO SCH (09:54)
[2017-02-24] MEDS: FOLIC ACID 1 MG TAB PO SCH (09:54)
[2017-02-24] MEDS: QUEtiapine FUMARATE 100 MG TAB PO SCH ×2 (09:54→20:30)
[2017-02-24] MEDS: MEMANTINE HCL 10 MG TAB PO SCH ×2 (09:54→20:30)
[2017-02-24] MEDS: DOCUSATE SODIUM 50 MG/SENNA 8.6 MG TAB PO SCH ×2 (09:54→20:30)
[2017-02-24] MEDS: UMECLIDINIUM 62.5 MCG/VILANTEROL 25 MCG INHALER INH SCH (09:55)
--- NOTE | 2017-02-24 15:55 | HHI.PR ---
Subjective Remarks She is currently lying in bed and has no new adverse complaints today. She still reports a poor appetite. She appears stronger today. Objective - Vital Signs Date Time Temp Pulse Resp B/P Pulse Ox O2 Delivery O2 Flow Rate FiO2 02/24/17 12:00 97.7 63 16 130/61 96 02/24/17 08:00 99.4 69 17 136/72 97 02/24/17 04:43 96.9 66 18 137/63 95 02/24/17 00:28 97.6 76 18 147/73 95 02/23/17 20:05 98.7 78 18 146/66 97 02/23/17 16:38 189/90 02/23/17 16:00 98.5 81 17 199/91 98 I/O 02/23/17 02/23/17 02/23/17 02/24/17 02/24/17 02/24/17 07:00 15:00 23:00 07:00 15:00 23:00 Intake Total 615 ml 1296 ml 480 ml 280 ml 240 ml Output Total 200 ml Balance 415 ml 1296 ml 480 ml 280 ml 240 ml Intake Oral 120 ml 600 ml 480 ml 280 ml 240 ml IV Total 495 ml 696 ml Output Urine Total 200 ml # Voids 3 5 2 2 1 # Bowel Movements 0 0 1 Result Diagram: 02/23/17 1000 02/23/17 1000 Objective Remarks GENERAL: She is alert and does not appear to be in distress. SKIN: Warm and dry. HEAD: Normocephalic. EYES: No scleral icterus. No injection or drainage. NECK: Supple, trachea midline. No JVD or lymphadenopathy. CARDIOVASCULAR: Regular rate and rhythm without murmurs, gallops, or rubs. RESPIRATORY: Breath sounds equal bilaterally. No accessory muscle use. GASTROINTESTINAL: Abdomen soft, non-tender, nondistended. MUSCULOSKELETAL: No cyanosis. There is mild edema of the distal legs. BACK: Nontender without obvious deformity. No CVA tenderness. A/P Assessment and Plan ASSESSMENT 1. Acute Metabolic Encephalopathy. 2. Elevated Hepatic Enzymes. 3. Dehydration. 4. Multiple Falls. 5. Inability to Ambulate. 6. Hypertension. 7. Advanced Osteoarthritis. 8. Dementia with Memory Loss. 9. Chronic Schizophrenia. PLAN 1. Continue with the current treatment plan. 2. Intravenous hydration. 3. Monitor Intake and Output. 4. Physical Therapy Evaluation. 5. Follow up laboratory assessment. 6. Use of home medications, as needed. 7. DVT and PE prophylaxis. Sen Abdullahi MD Feb 24, 2017 15:55
[2017-02-25 04:15] VITALS: BP 152/72; PULSE 68; RESP 18; TEMP 96.4; O2SAT 96
[2017-02-25] MEDS: CITALOPRAM HYDROBROMIDE 40 MG TAB PO SCH (07:47)
[2017-02-25] MEDS: UMECLIDINIUM 62.5 MCG/VILANTEROL 25 MCG INHALER INH SCH (07:47)
[2017-02-25] MEDS: TOLTERODINE TARTRATE 2 MG CAP LA PO SCH (07:48)
[2017-02-25] MEDS: QUEtiapine FUMARATE 100 MG TAB PO SCH ×2 (07:48→20:20)
[2017-02-25] MEDS: MEMANTINE HCL 10 MG TAB PO SCH ×2 (07:48→20:20)
[2017-02-25] MEDS: FOLIC ACID 1 MG TAB PO SCH (07:57)
[2017-02-25] MEDS: amLODIPine BESYLATE 5 MG TAB PO SCH (07:57)
[2017-02-25] MEDS: CYANOCOBALAMIN 1,000 MCG TAB PO SCH (07:57)
[2017-02-25] MEDS: LOSARTAN 50 MG TAB PO SCH (07:57)
[2017-02-25] MEDS: SODIUM CHLORIDE 0.9% FLUSH 10 ML FLUSH IV FLUSH SCH ×2 (07:58→20:36)
[2017-02-25] MEDS: DOCUSATE SODIUM 50 MG/SENNA 8.6 MG TAB PO SCH ×2 (07:58→20:19)
[2017-02-25 08:00] VITALS: BP 165/74; PULSE 73; RESP 17; TEMP 97.6; O2SAT 97
[2017-02-25] MEDS: HEPARIN SODIUM - SQ 10,000 UNITS/ML VIAL SQ SCH ×2 (10:19→20:21)
[2017-02-25 12:00] VITALS: BP 142/63; PULSE 77; RESP 16; TEMP 98.4; O2SAT 98
[2017-02-25 16:00] VITALS: BP 150/70; PULSE 69; RESP 17; TEMP 98.9; O2SAT 97
--- NOTE | 2017-02-25 18:46 | HHI.PR ---
Subjective Remarks She is resting quietly in bed and appears comfortable. No other adverse changes have been reported. Objective - Vital Signs Date Time Temp Pulse Resp B/P Pulse Ox O2 Delivery O2 Flow Rate FiO2 02/25/17 16:00 98.9 69 17 150/70 97 02/25/17 12:00 98.4 77 16 142/63 98 02/25/17 08:00 97.6 73 17 165/74 97 02/25/17 04:15 96.4 68 18 152/72 96 02/24/17 23:46 96.9 65 18 143/67 98 02/24/17 20:20 97.6 62 17 123/58 96 I/O 02/24/17 02/24/17 02/24/17 02/25/17 02/25/17 02/25/17 06:59 14:59 22:59 06:59 14:59 22:59 Intake Total 280 ml 240 ml 480 ml 380 ml 340 ml Balance 280 ml 240 ml 480 ml 380 ml 340 ml Intake Oral 280 ml 240 ml 480 ml 380 ml 340 ml # Voids 2 1 2 4 4 # Bowel Movements 1 1 0 Result Diagram: 02/23/17 1000 02/23/17 1000 Objective Remarks GENERAL: Alert and appears in no acute distress. SKIN: Warm and dry. HEAD: Normocephalic. EYES: No scleral icterus. No injection or drainage. NECK: Supple, trachea midline. No JVD or lymphadenopathy. CARDIOVASCULAR: Regular rate and rhythm without murmurs, gallops, or rubs. RESPIRATORY: Breath sounds equal bilaterally. No accessory muscle use. GASTROINTESTINAL: Abdomen soft, non-tender, nondistended. MUSCULOSKELETAL: No cyanosis, or edema. BACK: Nontender without obvious deformity. No CVA tenderness. A/P Assessment and Plan Assessment and Plan ASSESSMENT 1. Acute Metabolic Encephalopathy. 2. Elevated Hepatic Enzymes. 3. Dehydration. 4. Multiple Falls. 5. Inability to Ambulate. 6. Hypertension. 7. Advanced Osteoarthritis. 8. Dementia with Memory Loss. 9. Chronic Schizophrenia. PLAN 1. Continue with the current treatment plan. 2. Continue use of home medications, as needed. 3. Monitor Intake and Output. 4. Physical Therapy continues. 5. Encouraged good oral intake. 6. Discharge Planning for SNF placement for rehab. 7. DVT and PE prophylaxis. Sen Abdullahi MD Feb 25, 2017 18:45
[2017-02-25 20:00] VITALS: BP 162/74; PULSE 70; RESP 20; TEMP 98; O2SAT 97
[2017-02-26 08:00] VITALS: BP 177/75; PULSE 63; RESP 19; TEMP 98.4; O2SAT 96
--- NOTE | 2017-02-26 08:15 | HHI.PR ---
Subjective Remarks There is nothing new reported for adverse changes. Medications are tolerated fine. Objective - Vital Signs Date Time Temp Pulse Resp B/P Pulse Ox O2 Delivery O2 Flow Rate FiO2 02/25/17 20:00 98.0 70 20 162/74 97 02/25/17 16:00 98.9 69 17 150/70 97 02/25/17 12:00 98.4 77 16 142/63 98 I/O 02/25/17 02/25/17 02/25/17 02/26/17 02/26/17 02/26/17 07:00 15:00 23:00 07:00 15:00 23:00 Intake Total 380 ml 340 ml 120 ml 120 ml Output Total 125 ml Balance 380 ml 340 ml 120 ml -5 ml Intake Oral 380 ml 340 ml 120 ml 120 ml Output Urine Total 125 ml # Voids 4 4 3 4 # Bowel Movements 0 Result Diagram: 02/23/17 1000 02/23/17 1000 Objective Remarks GENERAL: No acute distress. SKIN: Warm and dry. HEAD: Normocephalic. EYES: No scleral icterus. No injection or drainage. NECK: Supple, trachea midline. No JVD or lymphadenopathy. CARDIOVASCULAR: Regular rate and rhythm without murmurs, gallops, or rubs. RESPIRATORY: Breath sounds equal bilaterally. No accessory muscle use. GASTROINTESTINAL: Abdomen soft, non-tender, nondistended. MUSCULOSKELETAL: No cyanosis, or edema. BACK: Nontender without obvious deformity. No CVA tenderness. A/P Assessment and Plan ASSESSMENT 1. Acute Metabolic Encephalopathy. 2. Elevated Hepatic Enzymes. 3. Dehydration. 4. Multiple Falls. 5. Inability to Ambulate. 6. Hypertension. 7. Advanced Osteoarthritis. 8. Dementia with Memory Loss. 9. Chronic Schizophrenia. OVERALL, MEDICALLY STABLE. PLAN 1. Continue with the current treatment plan. 2. Continue use of home medications, as needed. 3. Monitor Intake and Output. 4. Physical Therapy continues. 5. Encouraged good oral intake. 6. Discharge Planning for SNF placement for rehab. 7. DVT and PE prophylaxis. OKAY FOR DISCHARGE TO SNF FOR REHAB. Sen Abdullahi MD Feb 26, 2017 08:15
[2017-02-26] MEDS ORDERED: DIAZ2 PO (08:26)
[2017-02-26] MEDS: QUEtiapine FUMARATE 100 MG TAB PO SCH (08:27)
[2017-02-26] MEDS: CITALOPRAM HYDROBROMIDE 40 MG TAB PO SCH (08:27)
[2017-02-26] MEDS: LOSARTAN 50 MG TAB PO SCH (08:27)
[2017-02-26] MEDS: MEMANTINE HCL 10 MG TAB PO SCH (08:28)
[2017-02-26] MEDS: FOLIC ACID 1 MG TAB PO SCH (08:28)
[2017-02-26] MEDS: DOCUSATE SODIUM 50 MG/SENNA 8.6 MG TAB PO SCH (08:28)
[2017-02-26] MEDS: SODIUM CHLORIDE 0.9% FLUSH 10 ML FLUSH IV FLUSH SCH (08:28)
[2017-02-26] MEDS: TOLTERODINE TARTRATE 2 MG CAP LA PO SCH (08:28)
[2017-02-26] MEDS: UMECLIDINIUM 62.5 MCG/VILANTEROL 25 MCG INHALER INH SCH (08:28)
[2017-02-26] MEDS: amLODIPine BESYLATE 5 MG TAB PO SCH (08:28)
[2017-02-26] MEDS: CYANOCOBALAMIN 1,000 MCG TAB PO SCH (08:29)
[2017-02-26] MEDS: HEPARIN SODIUM - SQ 10,000 UNITS/ML VIAL SQ SCH (11:08)
[2017-02-26 12:00] VITALS: BP 121/63; PULSE 77; RESP 18; TEMP 97.9; O2SAT 98
== END 2017-02-26 13:14 | DRG 553 ==
LOC: NEPD 18:33 → NEDA 20:35 → NEPHCDU 22:58 → N07A 02-21 18:46
PROVIDERS: ADMIT Internal Medicine; ATTEND Internal Medicine
DX: M17.12 Unilateral primary osteoarthritis, left knee (principal); G93.41 Metabolic encephalopathy; E86.0 Dehydration; F03.90 Unspecified dementia, unspecified severity, without behavioral disturbance, psychotic disturbance, mood disturbance, and anxiety; F20.9 Schizophrenia, unspecified; R26.81 Unsteadiness on feet; E78.5 Hyperlipidemia, unspecified; F41.9 Anxiety disorder, unspecified; K21.9 Gastro-esophageal reflux disease without esophagitis; N18.2 Chronic kidney disease, stage 2 (mild); R29.6 Repeated falls; I12.9 Hypertensive chronic kidney disease with stage 1 through stage 4 chronic kidney disease, or unspecified chronic kidney disease; Z91.81 History of falling; S82.892D Other fracture of left lower leg, subsequent encounter for closed fracture with routine healing
CPT/HCPCS: 73552; 76937; 80048; 80053; 80076; 81001; 82378; 82728; 82977; 83540; 83735; 83930; 85025; 85610; 85730; 99285; J1644; J7030

== ENCOUNTER 2017-08-23 22:45 | Inpatient (IN) | payer MEDICARE ==
[~2017-08-23] VITALS: Ht 167.6 cm; Wt 80.0 kg
[~2017-08-23 22:45] MED LIST changes: +DIAZ2 PO; -DIAZ2TAB PO; -NAPR500 PO; -VESI5TAB PO; +VESI5TAB2 PO
[2017-08-23 22:48] VITALS: BP 151/63; PULSE 86; RESP 16; TEMP 97.9; O2SAT 96
[2017-08-23] MEDS ORDERED: DICL75TA PO (23:12)
[2017-08-23] MEDS ORDERED: QUET1TAB9 PO (23:12)
[2017-08-23] MEDS ORDERED: TRAZ50TA12 PO (23:12)
[2017-08-23] MEDS ORDERED: ZOCO20TA PO (23:12)
[2017-08-23] MEDS ORDERED: DONE10TA7 PO (23:12)
[2017-08-23 23:55] LABS: AUTOMATED NEUTROPHIL # 10.5 TH/MM3 (1.8-7.7); BASOPHIL # 0.3 TH/MM3 (0-0.2); HEMATOCRIT 27.1 % (35.0-46.0); HEMOGLOBIN 8.1 GM/DL (11.6-15.3); LYMPH % 3.8 % (9.0-44.0); LYMPHOCYTE # 0.5 TH/MM3 (1.0-4.8); MEAN CELL VOLUME 73.9 FL (80.0-100.0); MEAN CORPUSCULAR HEMOGLOBIN 22.2 PG (27.0-34.0); MEAN PLATELET VOLUME 7.6 FL (7.0-11.0); MONOCYTE # 1.4 TH/MM3 (0-0.9); NEUT % 83.2 % (16.0-70.0); PLATELET COUNT 384 TH/MM3 (150-450); RED BLOOD COUNT 3.67 MIL/MM3 (4.00-5.30); WHITE BLOOD COUNT 12.6 TH/MM3 (4.0-11.0)
[2017-08-24] VITALS (13 sets, daily range): BP systolic 119–193; BP diastolic 56–79; PULSE 58–85; RESP 16–20; TEMP 97–99.5; O2SAT 94–99
[2017-08-24 00:01] LABS: BICARBONATE 23.2 MEQ/L (21.0-32.0); CALCIUM 9.3 MG/DL (8.5-10.1); CREATININE 1.03 MG/DL (0.50-1.00)
[2017-08-24 00:06] LABS: PROTHROMBIN TIME - PATIENT 10.6 SEC (9.8-11.6)
[2017-08-24] MEDS ORDERED: PANTOPRAZOLE INJ 80 MG in SODIUM CHLORIDE 0.9% INJ 100 ML IV SCH ×3 (00:22)
[2017-08-24] MEDS ORDERED: PANTOPRAZOLE INJ 80 MG in SODIUM CHLORIDE 0.9% INJ 35 ML IV ONE (00:22)
--- NOTE | 2017-08-24 00:22 | PD ---
HPI Chief Complaint: GI Complaint Time Seen by Provider: 23:12 Travel History International Travel<30 days: No Contact w/Intl Traveler<30days: No Traveled to known affect area: No History of Present Illness HPI 86yo F with PMH of HTN, HLD, dementia presents to the ED after episode of bright red blood in her diaper today. Pt's daughter said she went to the bathroom at around 10pm and found blood in her diaper and then she had an episode of vomiting. Denies any fever, chest pain, sob, abdominal pain, focal weakness or numbness. Had colonoscopy years ago. PFSH Past Medical History Arthritis: Yes Asthma: No Autoimmune Disease: No Anxiety: No Depression: No Heart Rhythm Problems: No Cancer: No Cardiovascular Problems: No High Cholesterol: No Chemotherapy: No Chest Pain: No Congestive Heart Failure: No COPD: No Cerebrovascular Accident: No Diabetes: No Diminished Hearing: No Endocrine: No GERD: Yes (gall bladder problems with abdomenal cramps at times) Genitourinary: Yes Hiatal Hernia: No Hypertension: Yes Immune Disorder: No Kidney Stones: No Medical other: Yes (CURRENTLY HAS A FX RIGHT ANKLE ) Musculoskeletal: Yes (problems walking) Neurologic: Yes (dementia ) Psychiatric: No Reproductive: No Respiratory: No Migraines: No Radiation Therapy: No Renal Failure: No Seizures: No Sickle Cell Disease: No Sleep Apnea: No Thyroid Disease: No Ulcer: No Menopausal: Yes Past Surgical History Abdominal Surgery: No AICD: No Arteriovenous Shunt: No Cardiac Surgery: No Ear Surgery: No Endocrine Surgery: No Eye Surgery: No Genitourinary Surgery: Yes (hysterectomy) Gynecologic Surgery: Yes Hysterectomy: Yes Insulin Pump: No Joint Replacement: No Neurologic Surgery: No Oral Surgery: No Pacemaker: No Thoracic Surgery: No Other Surgery: Yes (HYSTERECTOMY, HEMORROIDS) Social History Alcohol Use: No Tobacco Use: No Substance Use: No Allergies-Medications (Allergen,Severity, Reaction): Coded Allergies: penicillin G (Unverified Allergy, Severe, Rash, 08/23/17) Reported Meds & Prescriptions Reported Meds & Active Scripts Active Valium (Diazepam) 2 Mg Tab 2 Mg PO HS PRN Reported Quetiapine (Quetiapine Fumarate) 200 Mg Tab 225 Mg PO HS Zocor (Simvastatin) 20 Mg Tab 20 Mg PO DAILY Diclofenac Sodium DR (Diclofenac Sodium) 75 Mg Tabdr 75 Mg PO BID Donepezil 10 Mg Tab 10 Mg PO HS Trazodone (Trazodone HCl) 50 Mg Tab 25 Mg PO HS Amlodipine (Amlodipine Besylate) 5 Mg Tab 5 Mg PO DAILY Losartan (Losartan Potassium) 100 Mg Tab 100 Mg PO DAILY Vesicare (Solifenacin) 5 Mg Tab 5 Mg PO DAILY Citalopram (Citalopram Hydrobromide) 40 Mg Tab 40 Mg PO DAILY Memantine 10 Mg Tab 10 Mg PO BID Anoro Ellipta Inh (Umeclidinium/Vilanterol) 62.5-25 Mcg/Act Aero 1 Puff INH DAILY Review of Systems Except as stated in HPI: all other systems reviewed are Neg Physical Exam Narrative GENERAL: 86yo F not in distress. SKIN: Focused skin assessment warm/dry. HEAD: Atraumatic. Normocephalic. EYES: Pupils equal and round. No scleral icterus. No injection or drainage. ENT: No nasal bleeding or discharge. Mucous membranes pink and moist. NECK: Trachea midline. No JVD. CARDIOVASCULAR: Regular rate and rhythm. No murmur appreciated. RESPIRATORY: No accessory muscle use. Clear to auscultation. Breath sounds equal bilaterally. GASTROINTESTINAL: Abdomen soft, non-tender, nondistended. MUSCULOSKELETAL: No obvious deformities. No clubbing. No cyanosis. No edema. NEUROLOGICAL: Awake and alert. No obvious cranial nerve deficits. Dementia but at baseline mental status. No focal neurologic deficits. Data Data Last Documented VS Vital Signs Date Time Temp Pulse Resp B/P (MAP) Pulse Ox O2 Delivery O2 Flow Rate FiO2 08/24/17 01:32 85 18 151/69 (96) 98 Room Air 08/23/17 22:48 97.9 Orders Orders Complete Blood Count With Diff (08/23/17 23:17) Basic Metabolic Panel (Bmp) (08/23/17 23:17) Prothrombin Time / Inr (Pt) (08/23/17 23:17) Act Partial Throm Time (Ptt) (08/23/17 23:17) Type And Screen (08/23/17 23:17) Lipase (08/23/17 23:17) Ct Abd/Pel W Iv Contrast(Rout) (08/24/17 ) Sodium Chloride 0.9... W/Pantoprazole In (08/24/17 00:22) Sodium Chloride 0.9... W/Pantoprazole In (08/24/17 00:22) Iohexol 350 Inj (Omnipaque 350 Inj) (08/24/17 01:23) Admit Order (Ed Use Only) (08/24/17 02:51) Labs Laboratory Tests Test 08/23/17 23:35 White Blood Count 12.6 TH/MM3 Red Blood Count 3.67 MIL/MM3 Hemoglobin 8.1 GM/DL Hematocrit 27.1 % Mean Corpuscular Volume 73.9 FL Mean Corpuscular Hemoglobin 22.2 PG Mean Corpuscular Hemoglobin Concent 30.0 % Red Cell Distribution Width 19.0 % Platelet Count 384 TH/MM3 Mean Platelet Volume 7.6 FL Neutrophils (%) (Auto) 83.2 % Lymphocytes (%) (Auto) 3.8 % Monocytes (%) (Auto) 11.0 % Eosinophils (%) (Auto) 0.0 % Basophils (%) (Auto) 2.0 % Neutrophils # (Auto) 10.5 TH/MM3 Lymphocytes # (Auto) 0.5 TH/MM3 Monocytes # (Auto) 1.4 TH/MM3 Eosinophils # (Auto) 0.0 TH/MM3 Basophils # (Auto) 0.3 TH/MM3 CBC Comment AUTO DIFF Differential Total Cells Counted 100 Neutrophils % (Manual) 83 % Band Neutrophils % 2 % Lymphocytes % 5 % Monocytes % 9 % Basophils % 1 % Neutrophils # (Manual) 10.7 TH/MM3 Differential Comment FINAL DIFF MANUAL Toxic Granulation 1+ Dohle Bodies PRESENT Platelet Estimate NORMAL Platelet Morphology Comment NORMAL Spherocytes OCC Acanthocytes OCC Prothrombin Time 10.6 SEC Prothromb Time International Ratio 1.0 RATIO Activated Partial Thromboplast Time 23.1 SEC Blood Urea Nitrogen 32 MG/DL Creatinine 1.03 MG/DL Random Glucose 131 MG/DL Calcium Level 9.3 MG/DL Sodium Level 143 MEQ/L Potassium Level 3.8 MEQ/L Chloride Level 111 MEQ/L Carbon Dioxide Level 23.2 MEQ/L Anion Gap 9 MEQ/L Estimat Glomerular Filtration Rate 61 ML/MIN Lipase 80 U/L MDM Medical Decision Making Medical Screen Exam Complete: Yes Emergency Medical Condition: Yes Differential Diagnosis Diverticulitis vs. AV malformation vs. malignancy vs. colitis Narrative Course 86yo F with episode of GI bleed and vomiting tonight. Pt is otherwise asymptomatic. Labs reviewed, mild leukocytosis at 12.6. H/H low at 8.1/27.1. BUN elevated at 32 which is from GI bleed. Creatinine 1.03. Lipase normal. Vital signs stable. Hemaprompt positive. Pt given protonix bolus and drip. 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 Pt know about this. Given her age, decreased hemoglobin and large amount of blood that the daughter described, I feel observation with monitoring of H/H and GI consult is warranted. There was no episodes of bleeding in the ED. Discussed with Dr. Abdullahi and accepted to his service. [facility] Point of Care Internal Pos. & Neg. Controls: Passed Fecal Specimen Occult Blood: Positive Diagnosis Primary Impression: GI bleed Qualified Codes: K92.2 - Gastrointestinal hemorrhage, unspecified Admitting Information Admitting Physician Requests: Eden Dover DO Aug 24, 2017 00:22
[2017-08-24 01:22] LABS: BANDS 2 % (0-6); BASOPHILS 1 % (0-2); DOHLE BODIES PRESENT (NONE SEEN); LYMPHOCYTES 5 % (9-44); MONOCYTES 9 % (0-8); NEUTROPHIL # MANUAL DIFF 10.7 TH/MM3 (1.8-7.7); POLYS (SEG NEUTROPHILS) 83 % (16-70); TOXIC GRANULATION 1+ (NORMAL)
[2017-08-24] MEDS ORDERED: IOHEXOL 350 MG/ML 10 ML VIAL (for RAD DIAG) IVCONTRAST ONE (01:23)
[2017-08-24 01:24] LABS: ACANTHOCYTES OCC (NORMAL)
[2017-08-24 01:25] LABS: SPHEROCYTES OCC (NORMAL)
--- NOTE | 2017-08-24 02:06 | RADRPT ---
EXAM DATE/TIME: 08/24/2017 01:19 [facility] COMPARISON: No previous studies available for comparison. INDICATIONS : Abdominal pain with vomiting. IV CONTRAST: 100 cc Omnipaque 350 (iohexol) IV ORAL CONTRAST: No oral contrast ingested. RADIATION DOSE: 12.64 CTDIvol (mGy) MEDICAL HISTORY : Hypertension. Gastroesophageal reflux disease. SURGICAL HISTORY : Hysterectomy. ENCOUNTER: Initial ACUITY: 1 day PAIN SCALE: 5/10 LOCATION: abdomen TECHNIQUE: Volumetric scanning of the abdomen and pelvis was performed. Using automated exposure control and ad justment of the mA and/or kV according to patient size, radiation dose was kept as low as reasonably achievable to obtain optimal diagnostic quality images. DICOM format image data is available electro nically for review and comparison. FINDINGS: LOWER LUNGS: The visualized lower lungs are clear. LIVER: Homogeneous density without lesion. There is no dilation of the biliary tree. There is a large galls tone near the gallbladder neck. There is question of enhancing soft tissue versus ill-defined dense m aterial in the gallbladder measuring approximately 3.5 x 2.7 cm. No gross gallbladder wall thickening . SPLEEN: Small subcentimeter hypodense lesion in the inferior spleen. PANCREAS: Within normal limits. KIDNEYS: Kidneys demonstrate symmetrical enhancement without evidence for hydronephrosis or radiopaque renal c alculi. There are multiple bilateral renal cysts some which are too small to fully characterize. A cy stic lesion in the inferior pole of the left kidney demonstrates a indeterminate density particularly posteriorly. This measures 5.2 x 3.2 cm. Second subcentimeter indeterminate density lesion in the po sterior mid right kidney, too small to fully characterize. Suspect a small 5 mm distal left renal art broderick pseudoaneurysm. ADRENAL GLANDS: Within normal limits. VASCULAR: Moderate atherosclerotic calcifications without aneurysm. BOWEL/MESENTERY: The stomach, small bowel, and colon demonstrate no acute abnormality. Moderate sigmoid diverticulosis . Scattered descending colonic periarticular. No definitive inflammatory change to suggest diverticul itis. Very subtle free fluid in the deep pelvis. ABDOMINAL WALL: There is small fat containing anterior abdominal periumbilical hernia. RETROPERITONEUM: There is no lymphadenopathy. BLADDER: No wall thickening or mass. REPRODUCTIVE: Uterus is surgically absent. INGUINAL: There is no lymphadenopathy or hernia. MUSCULOSKELETAL: Within normal limits for patient age. CONCLUSION: 1. Abnormal appearance of the gallbladder. In addition to cholelithiasis, there is enhancing soft tis li in the gallbladder measuring approximately 3.5 x 2.7 cm. Differential consideration includes ill- defined dense material in the gallbladder although this is felt to be less likely given the overall c onfiguration. 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 Further evaluation may be per formed with ultrasound as clinically warranted. 2. Multiple bilateral renal cysts with indeterminant density 5.2 cm cyst in the inferior pole of the left kidney. Statistically, this reflects a complex cyst although enhancement cannot be excluded part icularly posteriorly. Consider further characterization with a renal mass protocol CT or MRI examinat ion on an outpatient basis. Alternatively, ultrasound may be performed as initial evaluation. 3. 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 4. Colonic diverticulosis without definitive evidence for diverticulitis at this time. 5. Small subcentimeter hypodense lesion in the spleen which is too small to fully characterize. Walker Pickering MD on August 24, 2017 at 1:51 Board Certified Radiologist. This report was verified electronically.
[2017-08-24] MEDS ORDERED: SENNOSIDES 8.6 MG TAB PO PRN (03:30)
[2017-08-24] MEDS ORDERED: ACETAMINOPHEN 325 MG TAB PO PRN (03:30)
[2017-08-24] MEDS ORDERED: BISACODYL 10 MG SUPP RECTAL PRN (03:30)
[2017-08-24] MEDS ORDERED: NALOXONE HCL 0.4 MG/ML AMP IV PUSH PRN (03:30)
[2017-08-24] MEDS ORDERED: ONDANSETRON HCL 4 MG/2 ML VIAL IVP PRN (03:30)
[2017-08-24] MEDS ORDERED: LACTULOSE SYRUP 20 GM/30 ML CUP PO PRN (03:30)
[2017-08-24] MEDS ORDERED: SODIUM CHLORIDE 0.9% FLUSH 10 ML FLUSH IV FLUSH PRN (03:30)
[2017-08-24] MEDS ORDERED: MAGNESIUM HYDROXIDE SUSP 30 ML CUP PO PRN (03:30)
[2017-08-24] MEDS: D5-1/2 NS + KCL 20 MEQ INJ 1,000 ML IV SCH ×3 (03:57→22:45)
[2017-08-24 06:23] LABS: HEMATOCRIT 22.7 % (35.0-46.0); HEMOGLOBIN 7.3 GM/DL (11.6-15.3); MEAN CELL VOLUME 73.6 FL (80.0-100.0); MEAN CORPUSCULAR HEMOGLOBIN 23.7 PG (27.0-34.0); MEAN CORPUSCULAR HGB CONC 32.2 % (32.0-36.0); MEAN PLATELET VOLUME 7.8 FL (7.0-11.0); PLATELET COUNT 335 TH/MM3 (150-450); RED BLOOD COUNT 3.09 MIL/MM3 (4.00-5.30); RED CELL DISTRIBUTION WIDTH 18.8 % (11.6-17.2); WHITE BLOOD COUNT 10.5 TH/MM3 (4.0-11.0)
[2017-08-24 06:45] LABS: BICARBONATE 22.2 MEQ/L (21.0-32.0); CALCIUM 8.9 MG/DL (8.5-10.1); CREATININE 0.97 MG/DL (0.50-1.00)
--- NOTE | 2017-08-24 09:46 | PD.CONS ---
HPI History of Present Illness This is a 86 year old female with hx of gall bladder mass, dementia, HTN who presented to [facility] [place] for evaluation of painless rectal bleed. Patient with under line dementia, she is poor historian. HPI was obtained from daughter whom I was able to speak with on the phone. States she found a significant amount of blood in the diaper, this was bright blood, one episode, then she had one one episode of vomiting but no hematemesis. Denies any other associated GI symptoms. Denies previous hx of this. Patient has been taking Motrin for a while for fracture foot. States gall bladder mass found 8 months ago but due to advanced age, pt deemed not a surgical candidate. States pt had colonoscopy about 4 yrs ago, not certain who the physician is. Currently, pt is resting in bed, hemodynamically stable, no active bleeding reported over night or this am by nurse. Hgb today is 7.3, this is a drop from base line. CT of abd/pel done and that showed gall bladder mass, gallstones, multiple renal cysts, diverticulosis, lesion in the spleen too small to characterize. (Kennedy Alves) PFSH Past Medical History Hypertension. Hyperlipidemia. Osteoarthritis. Anxiety Disorder. Seasonal Allergies. Gastroesophageal Reflux Disease. Dementia with Short Term Memory Loss. Chronic Kidney Disease, Stage 2. Schizophrenia. Overactive Bladder. Cholelithiasis. Gallbladder Mass. Past Surgical History Hysterectomy. Hemorrhoidectomy. Colonoscopy. (Kennedy Alves) Coded Allergies: penicillin G (Unverified Allergy, Severe, Rash, 08/23/17) Medications Current Medications Medications (Trade) Dose Ordered Sig/Sandeep Route Start Time Stop Time Status Last Admin Potassium Chloride/Dextrose/ Sod Cl 1,000 ml @ 100 mls/hr Q10H IV 08/24/17 03:26 08/24/17 03:57 (NS Flush) 2 ml UNSCH PRN IV FLUSH 08/24/17 03:30 (NS Flush) 2 ml BID IV FLUSH 08/24/17 09:00 (Tylenol) 650 mg Q4H PRN PO 08/24/17 03:30 (Zofran Inj) 4 mg Q6H PRN IVP 08/24/17 03:30 (Narcan Inj) 0.4 mg UNSCH PRN IV PUSH 08/24/17 03:30 (Jessica-Colace) 1 tab BID PO 08/24/17 09:00 (Milk Of Magnesia Liq) 30 ml Q12H PRN PO 08/24/17 03:30 (Senokot) 17.2 mg Q12H PRN PO 08/24/17 03:30 (Dulcolax Supp) 10 mg DAILY PRN RECTAL 08/24/17 03:30 (Lactulose Liq) 30 ml DAILY PRN PO 08/24/17 03:30 (Protonix Inj) 40 mg Q24H IV PUSH 08/24/17 09:00 (Pneumovax-23 Inj) 25 mcg ONCE ONCE IM 08/25/17 09:00 08/25/17 09:01 (Flu (Quadrivalent) Vaccine Inj) 0.5 ml ONCE ONCE IM 08/25/17 09:00 08/25/17 09:01 Family History No family hx of colon cancer Social History No alcohol No smoking (Kennedy Alves) Review of Systems Constitutional: DENIES: Dizziness Eyes: DENIES: Double Vision Ears, nose, mouth, throat: DENIES: Hoarseness Respiratory: DENIES: Shortness of breath Cardiovascular: DENIES: Lower Extremity Edema Gastrointestinal: COMPLAINS OF: Bloody stools, Constipation, Vomiting, DENIES: Abdominal pain, Black stools, Diarrhea, Nausea, Anorexia, Odynophagia, Swelling of Abdomen, Heartburn, Hematemesis Genitourinary: DENIES: Hematuria Musculoskeletal: DENIES: Neck pain Integumentary: DENIES: Jaundice Hematologic/lymphatic: DENIES: Bruising Immunologic/allergic: DENIES: Eczema Neurologic: DENIES: Abnormal gait Psychiatric: DENIES: Anxiety (Kennedy Alves) GI Exam Vitals I&O Vital Signs Date Time Temp Pulse Resp B/P (MAP) Pulse Ox O2 Delivery O2 Flow Rate FiO2 08/24/17 08:01 98.2 72 20 143/67 (92) 96 08/24/17 04:55 98.0 74 18 135/68 (90) 94 08/24/17 04:23 08/24/17 03:51 73 16 139/63 (88) 98 08/24/17 01:32 85 18 151/69 (96) 98 Room Air 08/23/17 22:48 97.9 86 16 151/63 (92) 96 Room Air I/O 08/23/17 08/23/17 08/23/17 08/24/17 08/24/17 08/24/17 07:00 15:00 23:00 07:00 15:00 23:00 Intake Total 35 ml 400 ml Balance 35 ml 400 ml Intake IV Total 35 ml 400 ml Imaging Last Impressions Abdomen/Pelvis CT 08/24/17 0000 Signed Impressions: Service Date/Time: Thursday, August 24, 2017 01:19 - CONCLUSION: 1. Abnormal appearance of the gallbladder. In addition to cholelithiasis, there is enhancing soft tissue in the gallbladder measuring approximately 3.5 x 2.7 cm. Differential consideration includes ill-defined dense material in the gallbladder although this is felt to be less likely given the overall configuration. 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 Further evaluation may be performed with ultrasound as clinically warranted. 2. Multiple bilateral renal cysts with indeterminant density 5.2 cm cyst in the inferior pole of the left kidney. Statistically, this reflects a complex cyst although enhancement cannot be excluded particularly posteriorly. Consider further characterization with a renal mass protocol CT or MRI examination on an outpatient basis. Alternatively, ultrasound may be performed as initial evaluation. 3. 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 4. Colonic diverticulosis without definitive evidence for diverticulitis at this time. 5. Small subcentimeter hypodense lesion in the spleen which is too small to fully characterize. Walker Pickering MD Laboratory Test 08/23/17 23:35 08/24/17 05:55 White Blood Count 12.6 TH/MM3 10.5 TH/MM3 Red Blood Count 3.67 MIL/MM3 3.09 MIL/MM3 Hemoglobin 8.1 GM/DL 7.3 GM/DL Hematocrit 27.1 % 22.7 % Mean Corpuscular Volume 73.9 FL 73.6 FL Mean Corpuscular Hemoglobin 22.2 PG 23.7 PG Mean Corpuscular Hemoglobin Concent 30.0 % 32.2 % Red Cell Distribution Width 19.0 % 18.8 % Platelet Count 384 TH/MM3 335 TH/MM3 Mean Platelet Volume 7.6 FL 7.8 FL Neutrophils (%) (Auto) 83.2 % Lymphocytes (%) (Auto) 3.8 % Monocytes (%) (Auto) 11.0 % Eosinophils (%) (Auto) 0.0 % Basophils (%) (Auto) 2.0 % Neutrophils # (Auto) 10.5 TH/MM3 Lymphocytes # (Auto) 0.5 TH/MM3 Monocytes # (Auto) 1.4 TH/MM3 Eosinophils # (Auto) 0.0 TH/MM3 Basophils # (Auto) 0.3 TH/MM3 CBC Comment AUTO DIFF Differential Total Cells Counted 100 Neutrophils % (Manual) 83 % Band Neutrophils % 2 % Lymphocytes % 5 % Monocytes % 9 % Basophils % 1 % Neutrophils # (Manual) 10.7 TH/MM3 Differential Comment FINAL DIFF MANUAL Toxic Granulation 1+ Dohle Bodies PRESENT Platelet Estimate NORMAL Platelet Morphology Comment NORMAL Spherocytes OCC Acanthocytes OCC Prothrombin Time 10.6 SEC Prothromb Time International Ratio 1.0 RATIO Activated Partial Thromboplast Time 23.1 SEC Blood Urea Nitrogen 32 MG/DL 31 MG/DL Creatinine 1.03 MG/DL 0.97 MG/DL Random Glucose 131 MG/DL 125 MG/DL Calcium Level 9.3 MG/DL 8.9 MG/DL Sodium Level 143 MEQ/L 142 MEQ/L Potassium Level 3.8 MEQ/L 4.1 MEQ/L Chloride Level 111 MEQ/L 113 MEQ/L Carbon Dioxide Level 23.2 MEQ/L 22.2 MEQ/L Anion Gap 9 MEQ/L 7 MEQ/L Estimat Glomerular Filtration Rate 61 ML/MIN 66 ML/MIN Lipase 80 U/L Magnesium Level 2.0 MG/DL Physical Examination HEENT: normocephalic; atraumatic; no jaundice. CHEST: Chest is clear to auscultation and percussion. CARDIAC: Regular rate and rhythm with no murmur gallop or rubs. ABDOMEN: Soft, nondistended, nontender; no hepatosplenomegaly; bowel sounds are present in all four quadrants. EXTREMITIES: boot on right foot, no edema. SKIN: Normal; no rash; no jaundice. FACILITIES ADMINISTRATOR: alert but confused . (Kennedy Alves) Assessment and Plan Plan - Painless rectal bleed/anemia- Pt with gall bladder mass, ? cancer with mets, Patient with under line dementia, she is poor historian. HPI was obtained from daughter whom I was able to speak with on the phone. States she found a significant amount of blood in the diaper, this was bright blood, one episode. Denies any other associated GI symptoms. Denies previous hx of this. Patient has been taking Motrin for a while for fracture foot. States gall bladder mass found 8 months ago but due to advanced age, pt deemed not a surgical candidate. States pt had colonoscopy about 4 yrs ago, not certain who the physician is. Currently, pt is resting in bed, hemodynamically stable, no active bleeding reported over night or this am by nurse. Hgb today is 7.3, this is a drop from base line. CT of abd/pel done and that showed gall bladder mass, gallstones, multiple renal cysts, diverticulosis, lesion in the spleen too small to characterize. - Anemia- Multifactorial acute on chronic, acute gi bleed - Gall bladder mass- this was found 8 months ago, but pt deemed not a surgical candidate - Dementia, HTN per attending Plan: - Healthy diet - EGD/Colonoscopy on Saturday - Obtain consents, spoke with daughter who is agreeing - Clears in the am - Monitor hh - Transfuse as needed - cont. Protonix - Notify GI for active bleed - Patient seen and examined by Dr. Carrero and myself and this note is written on his behalf. (Kennedy Alves) Physician Comments Patient seen and examined Agree with above Continue with current supportive care Monitor labs and transfuse if needed Tentatively will plan for an EGD and a colonoscopy on Saturday and further recommendations shall depend on hospital course (Edmundo Carrero MD) Kennedy Alves Aug 24, 2017 09:46 Edmundo Carrero MD Aug 24, 2017 14:32
[2017-08-24] MEDS: PANTOPRAZOLE SODIUM 40 MG VIAL IV PUSH SCH (09:52)
[2017-08-24] MEDS: DOCUSATE SODIUM 50 MG/SENNA 8.6 MG TAB PO SCH ×2 (09:52→19:41)
[2017-08-24] MEDS: SODIUM CHLORIDE 0.9% FLUSH 10 ML FLUSH IV FLUSH SCH ×2 (09:52→20:19)
--- NOTE | 2017-08-24 10:25 | HHI.HP ---
History of Present Illness Service INTERNAL MEDICINE Primary Care Physician SEN ABDULLAHI MD Admission Diagnosis GASTROINTESTINAL BLEED Diagnoses: History of Present Illness This patient is an 86 year old female who presents with a history of having red blood passage per the rectum when she went to have a bowel movement on the day of admission. She denied having any pain or any recent abdominal bloating, nausea, vomiting or pain complaints. There was major concern for this occurrence by her daughter and she was brought to the [facility] Emergency Room for evaluation. She is found with low hemoglobin/ hematocrit status and requires blood transfusion as well as further investigation of her gastrointestinal tract. She is admitted to the hospital in this regard. Review of Systems Constitutional: COMPLAINS OF: Fatigue, Weight loss Gastrointestinal: COMPLAINS OF: Bloody stools, Nausea, Anorexia Past Family Social History Allergies: Coded Allergies: penicillin G (Unverified Allergy, Severe, Rash, 08/23/17) Past Medical History 1. Hypertension. 2. Hyperlipidemia. 3. Osteoarthritis. 4. Anxiety Disorder. 5. Seasonal Allergies. 6. Gastroesophageal Reflux Disease. 7. Dementia with Short Term Memory Loss. 8. Chronic Kidney Disease, Stage 2. 9. Schizophrenia. 10. Overactive Bladder. 11. Cholelithiasis. 12. Gallbladder Mass. Past Surgical History 1. Hysterectomy. 2. Hemorrhoidectomy. 3. Colonoscopy. Family History Father= at age 74 with history of Pancreatic Cancer. Mother= at age 63 with history of Cerebral Vascular Accident. Brother= at age 81 with a history of Liver Disease. 2 Sisters= in their 40's with both having a history of Liver Disease secondary to alcohol abuse. 3 Children=ages 61, 60 and 57. Social History She is and lives at home with her . The has Severe Parkinson's Disease. Her daughter is a environmental protection officer braiding machine operator for her and her . She is a nonsmoker and nondrinker. 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 She makes no use of recreational drugs. Physical Exam Vital Signs Vital Signs Date Time Temp Pulse Resp B/P (MAP) Pulse Ox O2 Delivery O2 Flow Rate FiO2 08/24/17 08:01 98.2 72 20 143/67 (92) 96 08/24/17 04:55 98.0 74 18 135/68 (90) 94 08/24/17 04:23 08/24/17 03:51 73 16 139/63 (88) 98 08/24/17 01:32 85 18 151/69 (96) 98 Room Air 08/23/17 22:48 97.9 86 16 151/63 (92) 96 Room Air Physical Exam GENERAL: This is a well-developed patient who is in mild apparent distress. SKIN: No rashes, ecchymoses or lesions. Cool and dry. HEAD: Atraumatic. Normocephalic. No temporal or scalp tenderness. EYES: Pupils equal round and reactive. Extraocular motions intact. No scleral icterus. No injection or drainage. Mild pallor is present. ENT: Nose without bleeding, purulent drainage or septal hematoma. Throat without erythema, tonsillar hypertrophy or exudate. Uvula midline. Airway patent. NECK: Trachea midline. No JVD or lymphadenopathy. Supple, nontender, no meningeal signs. CARDIOVASCULAR: Regular rate and rhythm without murmurs, gallops, or rubs. RESPIRATORY: Clear to auscultation. Breath sounds equal bilaterally. No wheezes , rales, or rhonchi. GASTROINTESTINAL: Abdomen soft, non-tender and nondistended. No hepato- splenomegaly, or palpable masses. No guarding. MUSCULOSKELETAL: Extremities without clubbing, cyanosis, or edema. No joint tenderness, effusion, or edema noted. No calf tenderness. Negative Homans sign bilaterally. NEUROLOGICAL: Awake and alert. Cranial nerves II through XII intact. Motor and sensory grossly within normal limits. Five out of 5 muscle strength in all muscle groups. Normal speech. Laboratory Laboratory Tests Test 08/23/17 23:35 08/24/17 05:55 White Blood Count 12.6 10.5 Red Blood Count 3.67 3.09 Hemoglobin 8.1 7.3 Hematocrit 27.1 22.7 Mean Corpuscular Volume 73.9 73.6 Mean Corpuscular Hemoglobin 22.2 23.7 Mean Corpuscular Hemoglobin Concent 30.0 32.2 Red Cell Distribution Width 19.0 18.8 Platelet Count 384 335 Mean Platelet Volume 7.6 7.8 Neutrophils (%) (Auto) 83.2 Lymphocytes (%) (Auto) 3.8 Monocytes (%) (Auto) 11.0 Eosinophils (%) (Auto) 0.0 Basophils (%) (Auto) 2.0 Neutrophils # (Auto) 10.5 Lymphocytes # (Auto) 0.5 Monocytes # (Auto) 1.4 Eosinophils # (Auto) 0.0 Basophils # (Auto) 0.3 CBC Comment AUTO DIFF Differential Total Cells Counted 100 Neutrophils % (Manual) 83 Band Neutrophils % 2 Lymphocytes % 5 Monocytes % 9 Basophils % 1 Neutrophils # (Manual) 10.7 Differential Comment FINAL DIFF MANUAL Toxic Granulation 1+ Dohle Bodies PRESENT Platelet Estimate NORMAL Platelet Morphology Comment NORMAL Spherocytes OCC Acanthocytes OCC Prothrombin Time 10.6 Prothromb Time International Ratio 1.0 Activated Partial Thromboplast Time 23.1 Blood Urea Nitrogen 32 31 Creatinine 1.03 0.97 Random Glucose 131 125 Calcium Level 9.3 8.9 Sodium Level 143 142 Potassium Level 3.8 4.1 Chloride Level 111 113 Carbon Dioxide Level 23.2 22.2 Anion Gap 9 7 Estimat Glomerular Filtration Rate 61 66 Lipase 80 Magnesium Level 2.0 Result Diagram: 08/24/1755408/24/17554 Caprini VTE Risk Assessment Caprini VTE Risk Assessment: Mod/High Risk (score >= 2) VTE Pharm Contraindication: Hemorrhage Caprini Risk Assessment Model Point Value = 1 Point Value = 2 Point Value = 3 Point Value = 5 Age 41-60 Minor surgery BMI > 25 kg/m2 Swollen legs Varicose veins or History of unexplained or recurrent spontaneous Oral contraceptives or hormone replacement Sepsis (< 1 month) Serious lung disease, including pneumonia (< 1 month) Abnormal pulmonary function Acute myocardial infarction Congestive heart failure (< 1 month) History of inflammatory bowel disease Medical patient at bed rest Age 61-74 Arthroscopic surgery Major open surgery (> 45 min) Laparoscopic surgery (> 45 min) Malignancy Confined to bed (> 72 hours) Immobilizing plaster cast Central venous access Age >= 75 History of VTE Family history of VTE Factor V Leiden Prothrombin [id number] Lupus anticoagulant Anticardiolipin antibodies Elevated serum homocysteine Heparin-induced thrombocytopenia Other congenital or acquired thrombophilia Stroke (< 1 month) Elective arthroplasty Hip, pelvis, or leg fracture Acute spinal cord injury (< 1 month) Prophylaxis Regimen Total Risk Factor Score Risk Level Prophylaxis Regimen 0-1 Low Early ambulation 2 Moderate Order ONE of the following: *Sequential Compression Device (SCD) *Heparin 5000 units SQ BID 3-4 Higher Order ONE of the following medications: *Heparin 5000 units SQ TID *Enoxaparin/Lovenox 40 mg SQ daily (WT < 150 kg, CrCl > 30 mL/min) *Enoxaparin/Lovenox 30 mg SQ daily (WT < 150 kg, CrCl > 10-29 mL/min) *Enoxaparin/Lovenox 30 mg SQ BID (WT < 150 kg, CrCl > 30 mL/min) AND/OR *Sequential Compression Device (SCD) 5 or more Highest Order ONE of the following medications: *Heparin 5000 units SQ TID (Preferred with Epidurals) *Enoxaparin/Lovenox 40 mg SQ daily (WT < 150 kg, CrCl > 30 mL/min) *Enoxaparin/Lovenox 30 mg SQ daily (WT < 150 kg, CrCl > 10-29 mL/min) *Enoxaparin/Lovenox 30 mg SQ BID (WT < 150 kg, CrCl > 30 mL/min) AND *Sequential Compression Device (SCD) Assessment and Plan Assessment and Plan ASSESSMENT 1. Acute Gastrointestinal Bleed-red blood per the rectum. 2. Acute Blood Loss Anemia. 3. Gallbladder Mass-suspicious for cancer and known for several months. 4. Hypertension. 5. Dementia with Memory Loss. PLAN 1. Admit to the hospital as an Inpatient. 2. Intravenous fluid support with electrolyte repletion. 3. Blood Transfusion to be done. 4. Consultation to Gastroenterology. 5. Close monitoring of the laboratory assessment. 6. Proton pump inhibitor use. 7. DVT, PE and PUD prophylaxis. Sen Abdullahi MD Aug 24, 2017 10:25
[2017-08-24] MEDS ORDERED: SODIUM CHLOR 0.9% 250 ML INJ 250 ML IV ONE (10:30)
[2017-08-24] MEDS ORDERED: FUROSEMIDE 20 MG/2 ML VIAL IV PUSH ONE (10:30)
[2017-08-24] MEDS ORDERED: DIAZEPAM 2 MG TAB PO PRN (18:45)
[2017-08-24] MEDS ORDERED: cloNIDine HCL 0.2 MG TAB PO ONE (19:00)
[2017-08-24] MEDS ORDERED: PILL SPLITTER OTHER PRN (19:15)
[2017-08-24] MEDS: traZODone HCL 50 MG TAB PO SCH (19:40)
[2017-08-24] MEDS: QUEtiapine FUMARATE 25 MG TAB PO SCH (19:40)
[2017-08-24] MEDS: DONEPEZIL HCL 5 MG TAB PO SCH (19:40)
[2017-08-24] MEDS: MEMANTINE HCL 10 MG TAB PO SCH (19:41)
[2017-08-24] MEDS: QUEtiapine FUMARATE 200 MG TAB PO SCH (19:41)
[2017-08-25] VITALS: BP 149/66; PULSE 59; RESP 16; TEMP 97.7; O2SAT 97
[2017-08-25 05:29] LABS: HEMATOCRIT 32.5 % (35.0-46.0); HEMOGLOBIN 10.2 GM/DL (11.6-15.3); MEAN CELL VOLUME 78.3 FL (80.0-100.0); MEAN CORPUSCULAR HEMOGLOBIN 24.6 PG (27.0-34.0); MEAN CORPUSCULAR HGB CONC 31.5 % (32.0-36.0); MEAN PLATELET VOLUME 7.3 FL (7.0-11.0); PLATELET COUNT 308 TH/MM3 (150-450); RED BLOOD COUNT 4.15 MIL/MM3 (4.00-5.30); RED CELL DISTRIBUTION WIDTH 21.2 % (11.6-17.2); WHITE BLOOD COUNT 10.2 TH/MM3 (4.0-11.0)
[2017-08-25 05:49] LABS: BICARBONATE 23.2 MEQ/L (21.0-32.0); CALCIUM 8.9 MG/DL (8.5-10.1); CREATININE 0.89 MG/DL (0.50-1.00)
[2017-08-25 08:00] VITALS: BP 141/67; PULSE 72; RESP 15; TEMP 96.4
[2017-08-25] MEDS: SODIUM CHLORIDE 0.9% FLUSH 10 ML FLUSH IV FLUSH SCH ×2 (08:16→20:25)
[2017-08-25] MEDS: DOCUSATE SODIUM 50 MG/SENNA 8.6 MG TAB PO SCH ×2 (08:16→20:23)
[2017-08-25] MEDS: amLODIPine BESYLATE 5 MG TAB PO SCH (08:16)
[2017-08-25] MEDS: MEMANTINE HCL 10 MG TAB PO SCH ×2 (08:16→20:24)
[2017-08-25] MEDS: PRAVASTATIN SOD 40 MG TAB PO SCH (08:16)
[2017-08-25] MEDS: CITALOPRAM HYDROBROMIDE 40 MG TAB PO SCH (08:16)
[2017-08-25] MEDS: TOLTERODINE TARTRATE 2 MG CAP LA PO SCH (08:16)
[2017-08-25] MEDS: PANTOPRAZOLE SODIUM 40 MG VIAL IV PUSH SCH (08:16)
[2017-08-25] MEDS: LOSARTAN 50 MG TAB PO SCH (08:16)
[2017-08-25] MEDS ORDERED: INFLUENZA VIRUS VACCINE (QUADRIVALENT) 0.5 ML SYR IM ONE (09:00)
[2017-08-25] MEDS ORDERED: PNEUMOCOCCAL POLYVALENT INJ 25 MCG/0.5 ML SYR IM ONE (09:00)
[2017-08-25] MEDS: D5-1/2 NS + KCL 20 MEQ INJ 1,000 ML IV SCH (09:26)
--- NOTE | 2017-08-25 11:30 | HHI.PR ---
Subjective Remarks She is sitting up in the chair and eating. Her diet is now clear liquids and she appears to be with good tolerance and without any adverse complaints. Plans are for endoscopic evaluation of the gastrointestinal tract tomorrow morning. Objective - Vital Signs Date Time Temp Pulse Resp B/P (MAP) Pulse Ox O2 Delivery O2 Flow Rate FiO2 08/25/17 08:00 96.4 72 15 141/67 (91) 08/25/17 00:00 97.7 59 16 149/66 (93) 97 08/24/17 21:06 97.0 58 18 119/56 98 08/24/17 20:00 97.8 74 19 193/74 (113) 99 08/24/17 18:13 99.1 74 17 190/79 98 08/24/17 17:57 98.3 72 18 189/77 97 08/24/17 17:56 98.3 72 18 189/77 97 08/24/17 17:50 98.3 72 18 189/77 (114) 97 08/24/17 14:53 99.5 69 18 145/69 98 08/24/17 14:38 99.5 70 16 163/72 98 08/24/17 12:20 97.9 62 20 128/60 (82) 97 I/O 08/24/17 08/24/17 08/24/17 08/25/17 08/25/17 08/25/17 07:00 15:00 23:00 07:00 15:00 23:00 Intake Total 35 ml 410 ml 1040 ml 360 ml Output Total 200 ml Balance 35 ml 410 ml 840 ml 360 ml Intake Oral 240 ml 360 ml IV Total 35 ml 400 ml Packed Cells 800 ml Blood Product IV Normal Saline Flush 10 ml Output Urine Total 200 ml # Voids 1 5 Result Diagram: 08/25/17 0510 08/25/17 0510 Objective Remarks GENERAL: Alert with some confusion. SKIN: Warm and dry. HEAD: Normocephalic. EYES: No scleral icterus. No injection or drainage. NECK: Supple, trachea midline. No JVD or lymphadenopathy. CARDIOVASCULAR: Regular rate and rhythm without murmurs, gallops, or rubs. RESPIRATORY: Breath sounds equal bilaterally. No accessory muscle use. GASTROINTESTINAL: Abdomen soft, non-tender, nondistended. MUSCULOSKELETAL: No cyanosis, or edema. BACK: Nontender without obvious deformity. No CVA tenderness. A/P Assessment and Plan ASSESSMENT 1. Acute Gastrointestinal Bleed-red blood per the rectum. 2. Acute Blood Loss Anemia-status post blood transfusion. 3. Gallbladder Mass-suspicious for cancer and known for several months. 4. Hypertension. 5. Dementia with Memory Loss. PLAN 1. Endoscopic evaluation of the gastrointestinal tract in the AM tomorrow. 2. Intravenous fluid support with electrolyte repletion continues. 3. Gastroenterology follows. 4. Close monitoring of the laboratory assessment. 5. DVT, PE and PUD prophylaxis. Sen Abdullahi MD Aug 25, 2017 11:29
[2017-08-25 12:00] VITALS: BP 140/63; PULSE 62; RESP 17; TEMP 96.1; O2SAT 96
[2017-08-25] MEDS ORDERED: MAGNESIUM CITRATE SOLN 300 ML BTL PO ONE ×2 (14:15→20:00)
[2017-08-25] MEDS ORDERED: CHLORHEXIDINE GLUCONATE 2 % 1 PACK (2 CLOTHS) TOPICAL PRN (15:45)
[2017-08-25] MEDS ORDERED: POVIDONE IODINE 5% (ANTISEPSIS KIT) 4 APPLICATIONS EACH NARE PRN (15:45)
[2017-08-25] MEDS ORDERED: METOPROLOL TARTRATE 25 MG TAB PO PRN (15:45)
[2017-08-25 16:00] VITALS: BP 183/77; PULSE 63; RESP 18; TEMP 96.5; O2SAT 97
[2017-08-25] MEDS ORDERED: PEG (High)/E-LYTE SOLN 4000 ML BTL PO ONE (16:00)
[2017-08-25] MEDS ORDERED: SODIUM CHLORID 0.9% 500 ML IV PRN (16:00)
[2017-08-25] MEDS ORDERED: LACTATED RINGER'S 1000 ML IV PRN (16:00)
[2017-08-25 20:00] VITALS: BP 163/75; PULSE 69; RESP 18; TEMP 99.5; O2SAT 96
[2017-08-25] MEDS: DONEPEZIL HCL 5 MG TAB PO SCH (20:23)
[2017-08-25] MEDS: QUEtiapine FUMARATE 200 MG TAB PO SCH (20:23)
[2017-08-25] MEDS: traZODone HCL 50 MG TAB PO SCH (20:23)
[2017-08-25] MEDS: QUEtiapine FUMARATE 25 MG TAB PO SCH (20:24)
--- NOTE | 2017-08-25 23:44 | HHI.GIFU ---
Subjective Remarks Comfortable in bed no active bleeding Objective Vitals I&O Vital Signs Date Time Temp Pulse Resp B/P (MAP) Pulse Ox O2 Delivery O2 Flow Rate FiO2 08/25/17 20:00 99.5 69 18 163/75 (104) 96 08/25/17 16:00 96.5 63 18 183/77 (112) 97 08/25/17 12:00 96.1 62 17 140/63 (88) 96 08/25/17 08:00 96.4 72 15 141/67 (91) 08/25/17 00:00 97.7 59 16 149/66 (93) 97 I/O 08/25/17 08/25/17 08/25/17 08/26/17 08/26/17 08/26/17 07:00 15:00 23:00 07:00 15:00 23:00 Intake Total 360 ml 480 ml Output Total 350 ml Balance 360 ml 130 ml Intake Oral 360 ml 480 ml Output Urine Total 350 ml # Voids 5 4 # Bowel Movements 5 Laboratory Laboratory Tests Test 08/25/17 05:10 White Blood Count 10.2 Red Blood Count 4.15 Hemoglobin 10.2 Hematocrit 32.5 Mean Corpuscular Volume 78.3 Mean Corpuscular Hemoglobin 24.6 Mean Corpuscular Hemoglobin Concent 31.5 Red Cell Distribution Width 21.2 Platelet Count 308 Mean Platelet Volume 7.3 Blood Urea Nitrogen 21 Creatinine 0.89 Random Glucose 122 Calcium Level 8.9 Sodium Level 140 Potassium Level 4.0 Chloride Level 110 Carbon Dioxide Level 23.2 Anion Gap 7 Estimat Glomerular Filtration Rate 73 Physical Exam HEENT: normocephalic; atraumatic; no jaundice. Throat is clear. NECK: Neck is supple, no JVD, CHEST: Chest is clear to auscultation and percussion. CARDIAC: Regular rate and rhythm with no murmur gallop or rubs. ABDOMEN: Soft, nondistended, nontender; no hepatosplenomegaly; bowel sounds are present in all four quadrants. EXTREMITIES: No clubbing, cyanosis, or edema. SKIN: Normal; no rash; no jaundice. WEAVER NEEDLE LOOM: No focal deficits; Assessment and Plan Plan - Painless rectal bleed/anemia- Pt with gall bladder mass, ? cancer with mets, Patient with under line dementia, she is poor historian. HPI was obtained from daughter whom I was able to speak with on the phone. States she found a significant amount of blood in the diaper, this was bright blood, one episode. Denies any other associated GI symptoms. Denies previous hx of this. Patient has been taking Motrin for a while for fracture foot. States gall bladder mass found 8 months ago but due to advanced age, pt deemed not a surgical candidate. States pt had colonoscopy about 4 yrs ago, not certain who the physician is. Currently, pt is resting in bed, hemodynamically stable, no active bleeding reported over night or this am by nurse. Hgb today is 7.3, this is a drop from base line. CT of abd/pel done and that showed gall bladder mass, gallstones, multiple renal cysts, diverticulosis, lesion in the spleen too small to characterize. - Anemia- Multifactorial acute on chronic, acute gi bleed - Gall bladder mass- this was found 8 months ago, but pt deemed not a surgical candidate - Dementia, HTN per attending Plan: - EGD/Colonoscopy tomorrow - Obtain consents, spoke with daughter who is agreeing - Clears in the am - Monitor hh - Transfuse as needed - cont. Protonix - Notify GI for active bleed Edmundo Carrero MD Aug 25, 2017 23:44
[2017-08-26] VITALS: BP 129/60; PULSE 70; RESP 18; TEMP 97.4; O2SAT 97
[2017-08-26] MEDS: D5-1/2 NS + KCL 20 MEQ INJ 1,000 ML IV SCH (04:21)
[2017-08-26] MEDS ORDERED: MAGNESIUM CITRATE SOLN 300 ML BTL PO ONE (05:00)
[2017-08-26 05:21] VITALS: BP 131/61; PULSE 78; RESP 18; TEMP 96.6; O2SAT 96
--- NOTE | 2017-08-26 07:20 | HHI.PR ---
Subjective Remarks She is lying in bed and appears comfortable. She is to have endoscopic evaluation of the gastrointestinal tract today. No major adverse changes have been reported. Objective - Vital Signs Date Time Temp Pulse Resp B/P (MAP) Pulse Ox O2 Delivery O2 Flow Rate FiO2 08/26/17 05:21 96.6 78 18 131/61 (84) 96 08/26/17 00:00 97.4 70 18 129/60 (83) 97 08/25/17 20:00 99.5 69 18 163/75 (104) 96 08/25/17 16:00 96.5 63 18 183/77 (112) 97 08/25/17 12:00 96.1 62 17 140/63 (88) 96 08/25/17 08:00 96.4 72 15 141/67 (91) I/O 08/25/17 08/25/17 08/25/17 08/26/17 08/26/17 08/26/17 07:00 15:00 23:00 07:00 15:00 23:00 Intake Total 360 ml 480 ml 780 ml Output Total 350 ml Balance 360 ml 130 ml 780 ml Intake Oral 360 ml 480 ml 780 ml Output Urine Total 350 ml # Voids 5 4 5 # Bowel Movements 5 5 Result Diagram: 08/25/17 0510 08/25/17 0510 Objective Remarks GENERAL: Alert and pleasantly confused. SKIN: Warm and dry. HEAD: Normocephalic. EYES: No scleral icterus. No injection or drainage. NECK: Supple, trachea midline. No JVD or lymphadenopathy. CARDIOVASCULAR: Regular rate and rhythm without murmurs, gallops, or rubs. RESPIRATORY: Breath sounds equal bilaterally. No accessory muscle use. GASTROINTESTINAL: Abdomen soft, non-tender, nondistended. MUSCULOSKELETAL: No cyanosis, or edema. BACK: Nontender without obvious deformity. No CVA tenderness. A/P Assessment and Plan ASSESSMENT 1. Acute Gastrointestinal Bleed-red blood per the rectum. 2. Acute Blood Loss Anemia-status post blood transfusion. 3. Gallbladder Mass-suspicious for cancer and known for several months. 4. Hypertension. 5. Dementia with Memory Loss. PLAN 1. Endoscopic evaluation of the gastrointestinal tract to be done today. 2. Gastroenterology follows. 3. Laboratory assessment as needed. 4. Disposition will be per the results of the G. I. assessment. 5. DVT, PE and PUD prophylaxis. Sen Abdullahi MD Aug 26, 2017 07:20
[2017-08-26 08:00] VITALS: BP 148/69; PULSE 71; RESP 16; TEMP 98.7; O2SAT 98
[2017-08-26] MEDS: MEMANTINE HCL 10 MG TAB PO SCH ×2 (08:47→23:57)
[2017-08-26] MEDS: PRAVASTATIN SOD 40 MG TAB PO SCH (08:47)
[2017-08-26] MEDS: PANTOPRAZOLE SODIUM 40 MG VIAL IV PUSH SCH (08:47)
[2017-08-26] MEDS: LOSARTAN 50 MG TAB PO SCH (08:47)
[2017-08-26] MEDS: CITALOPRAM HYDROBROMIDE 40 MG TAB PO SCH (08:47)
[2017-08-26] MEDS: amLODIPine BESYLATE 5 MG TAB PO SCH (08:47)
[2017-08-26] MEDS: TOLTERODINE TARTRATE 2 MG CAP LA PO SCH (08:47)
[2017-08-26] MEDS: DOCUSATE SODIUM 50 MG/SENNA 8.6 MG TAB PO SCH ×2 (08:47→21:00)
[2017-08-26] MEDS: SODIUM CHLORIDE 0.9% FLUSH 10 ML FLUSH IV FLUSH SCH (08:48)
[2017-08-26] MEDS ORDERED: PROPOFOL 200 MG/20 ML AMP IV ONE (12:00)
[2017-08-26] MEDS ORDERED: LIDOCAINE HCL 1% PF 5 ML SYRINGE OTHER ONE (12:00)
--- NOTE | 2017-08-26 12:50 | GIPROC ---
[facility] [address] [facility]. [facility], [address] EGD PROCEDURE REPORT EXAM DATE: 08/26/2017 PATIENT NAME: Lottie Painter MR #: [id number] BIRTHDATE: 1930 ATTENDING: Michael James MD ORDER #: [id number] TECHNICAL MARKETING ENGINEER: Perla Jenkins and Rupa Barajas STATUS: inpatient INDICATIONS: The patient is a 86 yr old female here for an EGD due to iron deficiency anemia PROCEDURE PERFORMED: EGD w/ biopsy MEDICATIONS: None and Per Anesthesia. TOPICAL ANESTHETIC: CONSENT: The patient understands the risks and benefits of the procedure and understands that these risks include, but are not limited to: sedation, allergic reaction, infection, perforation and/or bleeding. Alternative means of evaluation and treatment include, among others: physical exam, x-rays, and/or surgical intervention. The patient elects to proceed with this endoscopic procedure. medical equipment was checked for proper function. Hand hygiene and appropriate measures for infection prevention was taken. After the risks, benefits and alternatives of the procedure were thoroughly explained, Informed consent was verified, confirmed and timeout was successfully executed by the treatment team. The patient was anesthetized with topical anesthesia and the EC-3490Li (Pedi C) endoscope was introduced through the mouth and advanced to the second portion of the duodenum. Retroflexed views revealed no abnormalities The gastroscope was then slowly withdrawn and removed. ESOPHAGUS: The mucosa of the esophagus appeared normal. STOMACH: There was erythematous moderate gastritis in the gastric antrum. A biopsy was performed using cold forceps. Sample sent for histology. DUODENUM: The duodenal mucosa appeared normal in the bulb and second portion of the duodenum. ADVERSE EVENTS: There were no complications. IMPRESSIONS: 1. The esophagus appeared normal 2. There was erythematous gastritis in the gastric antrum; biopsy was performed 3. Normal duodenal mucosa in the bulb and second portion of the duodenum 4. Retroflexed views revealed no abnormalities RECOMMENDATIONS: 1. Await biopsy results. Biopsy results will not be ready for 7-10 days. If you don't hear from us in two weeks, call our office for biopsy results. 2. Anti-reflux regimen PATIENT CONDITION: stable DISPOSITION: Inpatient REPEAT EXAM: Return 3 years EGD pending biopsy results Michael James MD eSigned: Michael James MD 08/26/2017 12:49 PM cc: PATIENT NAME: Lottie Painter MR#: [id number]
--- NOTE | 2017-08-26 12:52 | GIPROC ---
[facility] [address] [facility]. [facility] [place], [address] COLONOSCOPY PROCEDURE REPORT EXAM DATE: 08/26/2017 PATIENT NAME: Lottie Painter MR #: [id number] BIRTHDATE: 1930 ENDOSCOPIST: Michael James MD ORDER #: [id number] AUTOCLAVE OPERATOR: Perla Jenkins and Rupa Barajas STATUS: inpatient INDICATIONS: The patient is a 86 yr old female here for a colonoscopy due to iron deficiency anemia PROCEDURE PERFORMED: Colonoscopy, incomplete MEDICATIONS: None and Per Anesthesia. PREP QUALITY: poor PREP TYPE:GoLytely ESTIMATED BLOOD LOSS: None CONSENT: The patient understands the risks and benefits of the procedure and understands that these risks include, but are not limited to: sedation, allergic reaction, infection, perforation and/or bleeding. Alternative means of evaluation and treatment include, among others: physical exam, x-rays, and/or surgical intervention. The patient elects to proceed with this endoscopic procedure. medical equipment was checked for proper function. Hand hygiene and appropriate measures for infection prevention was taken. After the risks, benefits and alternatives of the procedure were thoroughly explained, Informed consent was verified, confirmed and timeout was successfully executed by the treatment team. A digital exam revealed external hemorrhoids The Pentax EC-3490Li endoscope was introduced through the anus and advanced to the descending colon. The instrument was then slowly withdrawn as the colon was fully examined. COLON FINDINGS: There was severe diverticulosis noted in the sigmoid colon with associated tortuosity. No bleeding was noted from the diverticulosis. Retroflexed views revealed internal hemorrhoids and Retroflexed views revealed medium internal hemorrhoids The scope was then completely withdrawn from the patient and the procedure terminated. PROCEDURE WITHDRAWAL TIME:8minutes ADVERSE EVENTS: There were no complications. IMPRESSIONS: 1. There was severe diverticulosis noted in the sigmoid colon 2. Retroflexed views revealed internal hemorrhoids 3. Retroflexed views revealed medium internal hemorrhoids 4. Revealed external hemorrhoids RECOMMENDATIONS: 1. Benefiber 2 tsp daily 2. Continue surveillance 3. Yearly hemoccult 4. No seeds, nuts and popcorn in diet 5. Xray for Barium enema RECALL: NONE Michael James MD eSigned: Michael James MD 08/26/2017 12:52 PM cc: PATIENT NAME: Madina Lottie Johnson MR#: [id number]
[2017-08-26] MEDS ORDERED: DO NOT ADM ANY ANTICOAGULANT DRUGS PRN (14:30)
[2017-08-26 16:00] VITALS: BP 168/80; PULSE 77; RESP 18; TEMP 98.3; O2SAT 96
--- NOTE | 2017-08-26 17:42 | RADRPT ---
EXAM DATE/TIME: 08/26/2017 15:36 [facility] COMPARISON: No previous studies available for comparison. INDICATIONS : Anemia and diverticulosis FLUORO TIME: 3.2 minutes IMAGE COUNT: 31 CONTRAST: 1. Polibar ACB Barium Sulfate (96% w/w) MEDICAL HISTORY : Hypertension. Gastroesophageal reflux disease. SURGICAL HISTORY : Hysterectomy. ENCOUNTER: Initial ACUITY: 1 day PAIN SCORE: 0/10 LOCATION: Abdomen FINDINGS: Limited scuba diving instructor reveals moderate air throughout the colon. Because of diverticulitis on contrast enema was performed. Patient had difficulty retaining the lesvia um. Multiple diverticula are seen in the descending and sigmoid colon with associated spasm. There are n o constricting or obstructing lesions identified. Do not see polypoid lesions however the multiple d iverticuli make detection of small polypoid lesions very difficult. On the post evacuation film there is good emptying of the colon. CONCLUSION: Limited single contrast barium enema without obvious obstruction. Polypoid lesions c annot be excluded. Josue Bassett MD FACR on August 26, 2017 at 17:37 Board Certified Radiologist. This report was verified electronically.
--- NOTE | 2017-08-26 18:41 | HHI.FPPN ---
Addendum to progress note ADDENDUM Reason for addendum: Additonal documentation Additional information [facility] called due to patient have hematochezia with concern for passage of possible colonic contents. Patient is alert and reports she is asymptomatic without any concerns. She denies abdominal pain, rectal pain, dizziness, chest pain, SOB, fevers. Per RN, she called the [facility] after noticing the contents passed however reported no other acute concerns for the patient. P/E BP 150/72 HR 92 RR 20, nonlabored Temp 98.6F POx 97% on RA GENERAL: NAD, lying comfortably in bed NEURO: Alert. Normal speech. millwork estimator grossly intact. SKIN: Warm and dry. No rashes or erythema. HEENT: Normocephalic. Atraumatic. EOMI. No scleral icterus. MMM. NECK: Supple. No JVD. CARDIOVASCULAR: Regular rate and rhythm without murmurs, rubs, or gallops. Radial pulses 2+. RESPIRATORY: Breath sounds clear to auscultation and equal bilaterally, without wheezes, rales, or rhonchi. No accessory muscle use. GASTROINTESTINAL: Abdomen soft, nontender throughout, nondistended, normal BS throughout. No rebound tenderness. No guarding. RECTAL: No obvious external hemorrhoids. Bright red blood with suspected passage of moderate amount of stool in the bed. MUSCULOSKELETAL: No lower extremity edema. A/P: 86 year old female admitted on 08/24 with history of passing red blood per rectum when having a BM earlier that day. Patient had EGD and colonoscopy performed today remarkable for gastritis and severe diverticulosis, without any complications. Patient then had a barium enema study without acute complications showing no obvious obstruction. - Hemodynamically stable, no active bleeding. Passage of suspected stool and blood per rectum has stopped. Abdomen exam reassuring, soft, +BS and without tenderness. - Will repeat H/H now - Spoke with Dr. James via phone who recommended obtaining repeat H/H and await further orders as patient will be examined by himself Nagi Clark MD Aug 26, 2017 18:41
--- NOTE | 2017-08-26 19:26 | HHI.GIFU ---
Objective Vitals I&O Vital Signs Date Time Temp Pulse Resp B/P (MAP) Pulse Ox O2 Delivery O2 Flow Rate FiO2 08/26/17 16:00 98.3 77 18 168/80 (109) 96 08/26/17 13:17 98.1 75 18 184/93 (123) 97 08/26/17 08:00 98.7 71 16 148/69 (95) 98 08/26/17 05:21 96.6 78 18 131/61 (84) 96 08/26/17 00:00 97.4 70 18 129/60 (83) 97 08/25/17 20:00 99.5 69 18 163/75 (104) 96 I/O 08/25/17 08/25/17 08/25/17 08/26/17 08/26/17 08/26/17 07:00 15:00 23:00 07:00 15:00 23:00 Intake Total 360 ml 480 ml 780 ml 400 ml 240 ml Output Total 350 ml Balance 360 ml 130 ml 780 ml 400 ml 240 ml Intake Oral 360 ml 480 ml 780 ml 240 ml Other 400 ml Output Urine Total 350 ml # Voids 5 4 5 3 # Bowel Movements 5 5 6 Physical Exam HEENT: normocephalic; atraumatic; no jaundice. Throat is clear. NECK: Neck is supple, no JVD, CHEST: Chest is clear to auscultation and percussion. CARDIAC: Regular rate and rhythm with no murmur gallop or rubs. ABDOMEN: Soft, nondistended, nontender; no hepatosplenomegaly; bowel sounds are present in all four quadrants. EXTREMITIES: No clubbing, cyanosis, or edema. SKIN: Normal; no rash; no jaundice. RIGGING SLINGER: No focal deficits; Assessment and Plan Plan - Painless rectal bleed/anemia- Pt with gall bladder mass, ? cancer with mets, Patient with under line dementia, she is poor historian. HPI was obtained from daughter whom I was able to speak with on the phone. States she found a significant amount of blood in the diaper, this was bright blood, one episode. Denies any other associated GI symptoms. Denies previous hx of this. Patient has been taking Motrin for a while for fracture foot. States gall bladder mass found 8 months ago but due to advanced age, pt deemed not a surgical candidate. States pt had colonoscopy about 4 yrs ago, not certain who the physician is. Currently, pt is resting in bed, hemodynamically stable, no active bleeding reported over night or this am by nurse. Hgb today is 7.3, this is a drop from base line. CT of abd/pel done and that showed gall bladder mass, gallstones, multiple renal cysts, diverticulosis, lesion in the spleen too small to characterize. - Anemia- Multifactorial acute on chronic, acute gi bleed - Gall bladder mass- this was found 8 months ago, but pt deemed not a surgical candidate - Dementia, HTN per attending Plan: - EGD/Colonoscopy tomorrow - Obtain consents, spoke with daughter who is agreeing - Clears in the am - Monitor hh - Transfuse as needed - cont. Protonix - Notify GI for active bleed Physician Comments Called by nurse for rectal bleeding. Pt. had an incomplete colonoscopy and a barium enema done earlier today showing a tortuous colon and diverticulosis. Now having painless rectal bleeding. STAT H/H ordered. Type and screen for 2 units of PRBC. STAT bleeding scan ordered. Michael James MD Aug 26, 2017 19:26
--- NOTE | 2017-08-26 19:41 | EKG ---
Date Performed: 08/25/2017 Time Performed: 18:12:31 PTAGE: 86 years EKG: Sinus rhythm WITH FIRST DEGREE AV BLOCK ABNORMAL ECG PREVIOUS TRACING : 08/25/2009 13.07 Since previous tracing, no significant change noted DOCTOR: Annette Del Real Interpretating Date/Time 08/26/2017 19:39:31
[2017-08-26 20:00] VITALS: BP 122/59; PULSE 93; RESP 18; TEMP 96.7; O2SAT 94
[2017-08-26 20:09] LABS: HEMATOCRIT 24.7 % (35.0-46.0); HEMOGLOBIN 7.8 GM/DL (11.6-15.3)
[2017-08-26] MEDS: DONEPEZIL HCL 5 MG TAB PO SCH (23:56)
[2017-08-26] MEDS: traZODone HCL 50 MG TAB PO SCH (23:57)
[2017-08-26] MEDS: QUEtiapine FUMARATE 200 MG TAB PO SCH (23:59)
[2017-08-26] MEDS: QUEtiapine FUMARATE 25 MG TAB PO SCH (23:59)
[2017-08-27] VITALS (13 sets, daily range): BP systolic 111–132; BP diastolic 56–67; PULSE 56–87; RESP 16–21; TEMP 96.7–99; O2SAT 94–99
--- NOTE | 2017-08-27 00:12 | RADRPT ---
EXAM DATE/TIME: 08/26/2017 20:55 [facility] COMPARISON: No previous studies available for comparison. INDICATIONS : Patient passed red blood in stool on 08/23/2017. DOSE: 20.1 mCi Tc99m Ultratag labeled red blood cells IV IMAGIN minutes MEDICAL HISTORY : Hypertension. Gastroesophageal reflux disease. Dementia. SURGICAL HISTORY : Hysterectomy. Hemorrhoidectomy. ENCOUNTER: Initial ACUITY: 1 day PAIN SCALE: 2/10 LOCATION: Abdomen. TECHNIQUE: Following the modified in vitro labeling of autologous red cells, dynamic continuous images were acqu ired for 90 minutes. The acquisition was terminated prematurely due to patient agitation. FINDINGS: BIODISTRIBUTION: There is a very good labeling of red cells without significant uptake in the gastric wall. There is good delineation of the blood pool of the spleen and abdominal vessels. BLEEDING: No episodes of active GI bleeding are observed during specified interval of continuous observation. CONCLUSION: Negative GI bleeding scan. Kike Dos Santos MD on August 27, 2017 at 0:09 Board Certified Radiologist. This report was verified electronically.
[2017-08-27] MEDS ORDERED: FUROSEMIDE 20 MG/2 ML VIAL IV PUSH PRN (02:15)
[2017-08-27 04:08] LABS: HEMATOCRIT 21.3 % (35.0-46.0); MEAN CELL VOLUME 76.7 FL (80.0-100.0); MEAN CORPUSCULAR HEMOGLOBIN 24.5 PG (27.0-34.0); MEAN CORPUSCULAR HGB CONC 31.9 % (32.0-36.0); MEAN PLATELET VOLUME 7.5 FL (7.0-11.0); PLATELET COUNT 256 TH/MM3 (150-450); RED BLOOD COUNT 2.77 MIL/MM3 (4.00-5.30); RED CELL DISTRIBUTION WIDTH 20.8 % (11.6-17.2); WHITE BLOOD COUNT 10.4 TH/MM3 (4.0-11.0)
[2017-08-27 04:09] LABS: BICARBONATE 32.8 MEQ/L (21.0-32.0); CALCIUM 8.5 MG/DL (8.5-10.1); CREATININE 1.22 MG/DL (0.50-1.00)
[2017-08-27 04:18] LABS: HEMOGLOBIN 6.8 GM/DL (11.6-15.3)
[2017-08-27] MEDS: PANTOPRAZOLE SODIUM 40 MG VIAL IV PUSH SCH (08:23)
[2017-08-27] MEDS: CITALOPRAM HYDROBROMIDE 40 MG TAB PO SCH (08:23)
[2017-08-27] MEDS: MEMANTINE HCL 10 MG TAB PO SCH ×2 (08:23→19:47)
[2017-08-27] MEDS: PRAVASTATIN SOD 40 MG TAB PO SCH (08:24)
[2017-08-27] MEDS: TOLTERODINE TARTRATE 2 MG CAP LA PO SCH (08:24)
[2017-08-27] MEDS: DOCUSATE SODIUM 50 MG/SENNA 8.6 MG TAB PO SCH ×2 (08:24→19:47)
[2017-08-27] MEDS: SODIUM CHLORIDE 0.9% FLUSH 10 ML FLUSH IV FLUSH SCH ×2 (09:58→19:46)
[2017-08-27] MEDS: amLODIPine BESYLATE 5 MG TAB PO SCH (10:19)
[2017-08-27] MEDS: LOSARTAN 50 MG TAB PO SCH (10:19)
--- NOTE | 2017-08-27 16:10 | HHI.GIFU ---
Subjective Remarks Pt resting in bed, no GI complaints at this time. Pt was having rectal bleeding last night, blood witnessed on sheets. She denies any BM today. States she is hungry. (Sylvia Courtney) Objective Vitals I&O Vital Signs Date Time Temp Pulse Resp B/P (MAP) Pulse Ox O2 Delivery O2 Flow Rate FiO2 08/27/17 16:01 96 21 08/27/17 13:18 99.0 64 17 113/56 98 08/27/17 12:00 98.6 68 18 123/58 (79) 96 08/27/17 09:55 98.9 67 18 118/64 96 08/27/17 09:32 97.3 61 21 118/58 95 08/27/17 09:19 98.7 62 16 132/59 99 08/27/17 09:10 98.5 68 18 121/58 (79) 94 08/27/17 08:00 98.8 69 18 121/56 (77) 94 08/27/17 05:53 97.6 81 16 117/59 95 08/27/17 05:38 96.7 87 18 111/58 98 08/27/17 00:00 96.7 87 18 111/58 (75) 98 08/26/17 20:00 96.7 93 18 122/59 (80) 94 I/O 08/26/17 08/26/17 08/26/17 08/27/17 08/27/17 08/27/17 07:00 15:00 23:00 07:00 15:00 23:00 Intake Total 780 ml 400 ml 240 ml 10 ml 800 ml Output Total 0 ml Balance 780 ml 400 ml 240 ml 10 ml 800 ml Intake Oral 780 ml 240 ml Packed Cells 800 ml Blood Product IV Normal Saline Flush 10 ml Other 400 ml Output Urine Total 0 ml # Voids 5 3 # Bowel Movements 5 6 Laboratory Laboratory Tests Test 08/26/17 19:56 08/27/17 03:23 Hemoglobin 7.8 6.8 Hematocrit 24.7 21.3 White Blood Count 10.4 Red Blood Count 2.77 Mean Corpuscular Volume 76.7 Mean Corpuscular Hemoglobin 24.5 Mean Corpuscular Hemoglobin Concent 31.9 Red Cell Distribution Width 20.8 Platelet Count 256 Mean Platelet Volume 7.5 Blood Urea Nitrogen 13 Creatinine 1.22 Random Glucose 126 Calcium Level 8.5 Sodium Level 143 Potassium Level 3.9 Chloride Level 107 Carbon Dioxide Level 32.8 Anion Gap 3 Estimat Glomerular Filtration Rate 51 Imaging Last Impressions GI Bleed Scan Nuclear Medicine 08/26/17 0000 Signed Impressions: Service Date/Time: Saturday, August 26, 2017 20:55 - CONCLUSION: Negative GI bleeding scan. Kike Dos Santos MD Barium Enema 08/26/17 0000 Signed Impressions: Service Date/Time: Saturday, August 26, 2017 15:36 - CONCLUSION: Limited single contrast barium enema without obvious obstruction. Polypoid lesions cannot be excluded. Josue Bassett MD FACR Abdomen/Pelvis CT 08/24/17 0000 Signed Impressions: Service Date/Time: Thursday, August 24, 2017 01:19 - CONCLUSION: 1. Abnormal appearance of the gallbladder. In addition to cholelithiasis, there is enhancing soft tissue in the gallbladder measuring approximately 3.5 x 2.7 cm. Differential consideration includes ill-defined dense material in the gallbladder although this is felt to be less likely given the overall configuration. 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 Further evaluation may be performed with ultrasound as clinically warranted. 2. Multiple bilateral renal cysts with indeterminant density 5.2 cm cyst in the inferior pole of the left kidney. Statistically, this reflects a complex cyst although enhancement cannot be excluded particularly posteriorly. Consider further characterization with a renal mass protocol CT or MRI examination on an outpatient basis. Alternatively, ultrasound may be performed as initial evaluation. 3. 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 4. Colonic diverticulosis without definitive evidence for diverticulitis at this time. 5. Small subcentimeter hypodense lesion in the spleen which is too small to fully characterize. Walker Pickering MD Physical Exam HEENT: Normocephalic; atraumatic CHEST: Even/unlabored CARDIAC: RRR ABDOMEN: Soft, nontender. EXTREMITIES: No clubbing, cyanosis, or edema. SKIN: Normal; no rash; no jaundice. TRAILER RENTAL CLERK: No focal deficits; (Sylvia Courtney) Assessment and Plan Plan - Painless rectal bleed/anemia- Pt with gall bladder mass, ? cancer with mets, Patient with under line dementia, she is poor historian. HPI was obtained from daughter whom I was able to speak with on the phone. States she found a significant amount of blood in the diaper, this was bright blood, one episode. Denies any other associated GI symptoms. Denies previous hx of this. Patient has been taking Motrin for a while for fracture foot. States gall bladder mass found 8 months ago but due to advanced age, pt deemed not a surgical candidate. States pt had colonoscopy about 4 yrs ago, not certain who the physician is. Currently, pt is resting in bed, hemodynamically stable, no active bleeding reported over night or this am by nurse. Hgb today is 7.3, this is a drop from base line. CT of abd/pel done and that showed gall bladder mass, gallstones, multiple renal cysts, diverticulosis, lesion in the spleen too small to characterize. - Anemia- Multifactorial acute on chronic, acute gi bleed - Gall bladder mass- this was found 8 months ago, but pt deemed not a surgical candidate - Dementia, HTN per attending (08/27) --> Pt with witnessed rectal bleeding last night at around 7pm. Per RN she has not had any continue rectal bleeding. Pt reports no BM today. Per RN she has now received 2 U PRBCs today. NM bleeding scan --> Negative. Barium enema --> Limited single contrast barium enema without obvious obstruction,. Polypoid lesions cannot be excluded. Pt is not a surgical candidate. IR consulted for angiogram with possible embolization. Pt to be on full liquid diet. Repeat H/H. Notify GI of active bleeding. Plan: - Full liquid diet - IR consult for angiogram with embolization - Repeat H/H - Notify GI of active bleeding - Further recommendations to follow Pt has been seen and examined by myself and Dr. James and this note is written on his behalf (Sylvia Courtney) Physician Comments Seen and examined with HARMONY, no bleeding now. S/P 2 units of PRBC, repeat H/H ordered. Angiogram with embolization if further bleeding. Discussed with Dr. Jay. (Michael James MD) Sylvia Courtney Aug 27, 2017 16:10 Michael James MD Aug 27, 2017 17:36
[2017-08-27 18:41] LABS: HEMATOCRIT 27.8 % (35.0-46.0); HEMOGLOBIN 9.3 GM/DL (11.6-15.3)
[2017-08-27] MEDS: DONEPEZIL HCL 5 MG TAB PO SCH (19:47)
[2017-08-27] MEDS: QUEtiapine FUMARATE 25 MG TAB PO SCH (19:47)
[2017-08-27] MEDS: traZODone HCL 50 MG TAB PO SCH (19:47)
[2017-08-27] MEDS: QUEtiapine FUMARATE 200 MG TAB PO SCH (19:48)
[2017-08-28] VITALS: BP 117/59; PULSE 59; RESP 20; TEMP 96.6; O2SAT 99
[2017-08-28 08:00] VITALS: BP 140/67; PULSE 72; RESP 17; TEMP 97.1; O2SAT 98
[2017-08-28 08:55] LABS: HEMATOCRIT 26.5 % (35.0-46.0); HEMOGLOBIN 9.3 GM/DL (11.6-15.3); MEAN CELL VOLUME 77.6 FL (80.0-100.0); MEAN CORPUSCULAR HEMOGLOBIN 27.2 PG (27.0-34.0); MEAN PLATELET VOLUME 7.6 FL (7.0-11.0); PLATELET COUNT 240 TH/MM3 (150-450); RED BLOOD COUNT 3.41 MIL/MM3 (4.00-5.30); RED CELL DISTRIBUTION WIDTH 19.7 % (11.6-17.2); WHITE BLOOD COUNT 7.4 TH/MM3 (4.0-11.0)
[2017-08-28 09:31] LABS: BICARBONATE 31.5 MEQ/L (21.0-32.0); CALCIUM 9.1 MG/DL (8.5-10.1); CREATININE 1.04 MG/DL (0.50-1.00)
[2017-08-28] MEDS: SODIUM CHLORIDE 0.9% FLUSH 10 ML FLUSH IV FLUSH SCH ×2 (09:49→21:13)
[2017-08-28] MEDS: CITALOPRAM HYDROBROMIDE 40 MG TAB PO SCH (09:50)
[2017-08-28] MEDS: PRAVASTATIN SOD 40 MG TAB PO SCH (09:50)
[2017-08-28] MEDS: TOLTERODINE TARTRATE 2 MG CAP LA PO SCH (09:50)
[2017-08-28] MEDS: amLODIPine BESYLATE 5 MG TAB PO SCH (09:50)
[2017-08-28] MEDS: PANTOPRAZOLE SODIUM 40 MG VIAL IV PUSH SCH (09:50)
[2017-08-28] MEDS: LOSARTAN 50 MG TAB PO SCH (09:50)
[2017-08-28] MEDS: DOCUSATE SODIUM 50 MG/SENNA 8.6 MG TAB PO SCH ×2 (09:50→21:08)
[2017-08-28] MEDS: MEMANTINE HCL 10 MG TAB PO SCH ×2 (09:51→21:08)
[2017-08-28 12:00] VITALS: BP 139/67; PULSE 67; RESP 17; TEMP 97.2; O2SAT 98
--- NOTE | 2017-08-28 15:09 | HHI.GIFU ---
Subjective Remarks Pt sitting on side of bed. She has no GI complaints at this time. Spoke with RN who states pt has not had a BM today. (Sylvia Courtney) Objective Vitals I&O Vital Signs Date Time Temp Pulse Resp B/P (MAP) Pulse Ox O2 Delivery O2 Flow Rate FiO2 08/28/17 12:00 97.2 67 17 139/67 (91) 98 08/28/17 08:00 97.1 72 17 140/67 (91) 98 08/28/17 00:00 96.6 59 20 117/59 (78) 99 08/27/17 20:00 96.7 80 20 123/58 (79) 97 08/27/17 16:01 96 21 08/27/17 16:00 98.6 56 20 127/67 (87) 97 I/O 08/27/17 08/27/17 08/27/17 08/28/17 08/28/17 08/28/17 07:00 15:00 23:00 07:00 15:00 23:00 Intake Total 10 ml 800 ml 350 ml Output Total 0 ml 100 ml Balance 10 ml 800 ml 350 ml -100 ml Packed Cells 800 ml 350 ml Blood Product IV Normal Saline Flush 10 ml Output Urine Total 0 ml 100 ml # Voids 2 Laboratory Laboratory Tests Test 08/27/17 18:26 08/28/17 07:20 Hemoglobin 9.3 9.3 Hematocrit 27.8 26.5 White Blood Count 7.4 Red Blood Count 3.41 Mean Corpuscular Volume 77.6 Mean Corpuscular Hemoglobin 27.2 Mean Corpuscular Hemoglobin Concent 35.0 Red Cell Distribution Width 19.7 Platelet Count 240 Mean Platelet Volume 7.6 Blood Urea Nitrogen 15 Creatinine 1.04 Random Glucose 82 Calcium Level 9.1 Sodium Level 141 Potassium Level 3.6 Chloride Level 104 Carbon Dioxide Level 31.5 Anion Gap 6 Estimat Glomerular Filtration Rate 61 Imaging Last Impressions GI Bleed Scan Nuclear Medicine 08/26/17 0000 Signed Impressions: Service Date/Time: Saturday, August 26, 2017 20:55 - CONCLUSION: Negative GI bleeding scan. Kike Dos Santos MD Barium Enema 08/26/17 0000 Signed Impressions: Service Date/Time: Saturday, August 26, 2017 15:36 - CONCLUSION: Limited single contrast barium enema without obvious obstruction. Polypoid lesions cannot be excluded. Josue Bassett MD FACR Abdomen/Pelvis CT 08/24/17 0000 Signed Impressions: Service Date/Time: Thursday, August 24, 2017 01:19 - CONCLUSION: 1. Abnormal appearance of the gallbladder. In addition to cholelithiasis, there is enhancing soft tissue in the gallbladder measuring approximately 3.5 x 2.7 cm. Differential consideration includes ill-defined dense material in the gallbladder although this is felt to be less likely given the overall configuration. 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 Further evaluation may be performed with ultrasound as clinically warranted. 2. Multiple bilateral renal cysts with indeterminant density 5.2 cm cyst in the inferior pole of the left kidney. Statistically, this reflects a complex cyst although enhancement cannot be excluded particularly posteriorly. Consider further characterization with a renal mass protocol CT or MRI examination on an outpatient basis. Alternatively, ultrasound may be performed as initial evaluation. 3. 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 4. Colonic diverticulosis without definitive evidence for diverticulitis at this time. 5. Small subcentimeter hypodense lesion in the spleen which is too small to fully characterize. Walker Pickering MD Physical Exam HEENT: Normocephalic; atraumatic CHEST: Even/unlabored CARDIAC: RRR ABDOMEN: Soft, nontender. EXTREMITIES: No clubbing, cyanosis, or edema. SKIN: Normal; no rash; no jaundice. DISTRIBUTION CENTER ASSOCIATE: No focal deficits; (Sylvia Courtney) Assessment and Plan Plan - Painless rectal bleed/anemia- Pt with gall bladder mass, ? cancer with mets, Patient with under line dementia, she is poor historian. HPI was obtained from daughter whom I was able to speak with on the phone. States she found a significant amount of blood in the diaper, this was bright blood, one episode. Denies any other associated GI symptoms. Denies previous hx of this. Patient has been taking Motrin for a while for fracture foot. States gall bladder mass found 8 months ago but due to advanced age, pt deemed not a surgical candidate. States pt had colonoscopy about 4 yrs ago, not certain who the physician is. Currently, pt is resting in bed, hemodynamically stable, no active bleeding reported over night or this am by nurse. Hgb today is 7.3, this is a drop from base line. CT of abd/pel done and that showed gall bladder mass, gallstones, multiple renal cysts, diverticulosis, lesion in the spleen too small to characterize. - Anemia- Multifactorial acute on chronic, acute gi bleed - Gall bladder mass- this was found 8 months ago, but pt deemed not a surgical candidate - Dementia, HTN per attending (08/27) --> Pt with witnessed rectal bleeding last night at around 7pm. Per RN she has not had any continue rectal bleeding. Pt reports no BM today. Per RN she has now received 2 U PRBCs today. NM bleeding scan --> Negative. Barium enema --> Limited single contrast barium enema without obvious obstruction,. Polypoid lesions cannot be excluded. Pt is not a surgical candidate. IR consulted for angiogram with possible embolization. Pt to be on full liquid diet. Repeat H/H. Notify GI of active bleeding. (08/28) No evidence of continued bleeding, spoke with RN who states pt has not had a BM. H/H remains stable. Currently 9.3.5 Will switch Protonix from IV to PO. Advance diet. Plan: - [place] - Monitor H/H - Continue Protonix - GI will sign off please reconsult as needed Pt has been seen and examined by myself and Dr. James and this note is written on his behalf (Sylvia Courtney) Physician Comments Seen and examined with HARMONY, no bleeding. H/H stable. Family at bedside. Can dc home with gi fu as needed. Thank you (Michael James MD) Sylvia Courtney Aug 28, 2017 15:08 Michael James MD Aug 28, 2017 15:21
[2017-08-28 16:00] VITALS: BP 146/65; PULSE 70; RESP 17; TEMP 97.9; O2SAT 98
--- NOTE | 2017-08-28 16:17 | HHI.PR ---
Subjective Remarks She just finished on the bedside commode for urination. She has not had a bowel movement today. She denies any abdominal pain or nausea. She is tolerating all of the current medication regimen. Objective - Vital Signs Date Time Temp Pulse Resp B/P (MAP) Pulse Ox O2 Delivery O2 Flow Rate FiO2 08/28/17 12:00 97.2 67 17 139/67 (91) 98 08/28/17 08:00 97.1 72 17 140/67 (91) 98 08/28/17 00:00 96.6 59 20 117/59 (78) 99 08/27/17 20:00 96.7 80 20 123/58 (79) 97 I/O 08/27/17 08/27/17 08/27/17 08/28/17 08/28/17 08/28/17 07:00 15:00 23:00 07:00 15:00 23:00 Intake Total 10 ml 800 ml 350 ml Output Total 0 ml 100 ml Balance 10 ml 800 ml 350 ml -100 ml Packed Cells 800 ml 350 ml Blood Product IV Normal Saline Flush 10 ml Output Urine Total 0 ml 100 ml # Voids 2 Result Diagram: 08/28/17 0720 08/28/17 0720 Objective Remarks GENERAL: Alert and does not appear to be in any distress. SKIN: Warm and dry. HEAD: Normocephalic and atraumatic. EYES: No scleral icterus. No injection or drainage. NECK: Supple, trachea midline. No JVD or lymphadenopathy. CARDIOVASCULAR: Regular rate and rhythm without murmurs, gallops, or rubs. RESPIRATORY: Breath sounds equal bilaterally. No accessory muscle use. GASTROINTESTINAL: Abdomen soft, non-tender, nondistended. MUSCULOSKELETAL: No cyanosis, or edema. BACK: Nontender without obvious deformity. No CVA tenderness. NEURO: No focal deficits to exam. A/P Assessment and Plan ASSESSMENT 1. Acute Gastrointestinal Bleed-red blood per the rectum. 2. Acute Blood Loss Anemia-status post blood transfusions. 3. Gallbladder Mass-suspicious for cancer and known for several months. 4. Hypertension. 5. Dementia with Memory Loss. PLAN 1. To monitor the stability of the blood counts. 2. Gastroenterology disposition is given. 3. Laboratory assessment to follow for stability. 4. Diet and Activity advanced. 5. DVT, PE and PUD prophylaxis. Sen Abdullahi MD Aug 28, 2017 16:17
[2017-08-28] MEDS: POLYETHYLENE GLYCOL 17 GM PKG PO SCH (17:34)
[2017-08-28 20:00] VITALS: BP 155/71; PULSE 60; RESP 18; TEMP 97.1; O2SAT 97
[2017-08-28] MEDS: QUEtiapine FUMARATE 25 MG TAB PO SCH (21:08)
[2017-08-28] MEDS: DONEPEZIL HCL 5 MG TAB PO SCH (21:08)
[2017-08-28] MEDS: traZODone HCL 50 MG TAB PO SCH (21:09)
[2017-08-28] MEDS: QUEtiapine FUMARATE 200 MG TAB PO SCH (21:09)
[2017-08-29 00:36] VITALS: BP 158/85; PULSE 79; RESP 20; TEMP 98.9; O2SAT 97
[2017-08-29 06:16] LABS: HEMATOCRIT 26.4 % (35.0-46.0); MEAN CELL VOLUME 78.4 FL (80.0-100.0); MEAN CORPUSCULAR HEMOGLOBIN 26.7 PG (27.0-34.0); MEAN CORPUSCULAR HGB CONC 34.1 % (32.0-36.0); MEAN PLATELET VOLUME 8.2 FL (7.0-11.0); PLATELET COUNT 270 TH/MM3 (150-450); RED BLOOD COUNT 3.37 MIL/MM3 (4.00-5.30); RED CELL DISTRIBUTION WIDTH 20.1 % (11.6-17.2); WHITE BLOOD COUNT 9.8 TH/MM3 (4.0-11.0)
[2017-08-29 06:24] LABS: BICARBONATE 30.5 MEQ/L (21.0-32.0); CALCIUM 8.8 MG/DL (8.5-10.1); CREATININE 1.05 MG/DL (0.50-1.00)
[2017-08-29 08:00] VITALS: BP 150/70; PULSE 68; RESP 16; TEMP 98.9; O2SAT 95
[2017-08-29] MEDS: CITALOPRAM HYDROBROMIDE 40 MG TAB PO SCH (08:51)
[2017-08-29] MEDS: POLYETHYLENE GLYCOL 17 GM PKG PO SCH (08:51)
[2017-08-29] MEDS: TOLTERODINE TARTRATE 2 MG CAP LA PO SCH (08:51)
[2017-08-29] MEDS: MEMANTINE HCL 10 MG TAB PO SCH ×2 (08:51→19:53)
[2017-08-29] MEDS: amLODIPine BESYLATE 5 MG TAB PO SCH (08:51)
[2017-08-29] MEDS: DOCUSATE SODIUM 50 MG/SENNA 8.6 MG TAB PO SCH ×2 (08:51→19:53)
[2017-08-29] MEDS: PANTOPRAZOLE SOD 40 MG DELAYED RELEASE TAB PO SCH (08:51)
[2017-08-29] MEDS: SODIUM CHLORIDE 0.9% FLUSH 10 ML FLUSH IV FLUSH SCH ×2 (08:51→19:55)
[2017-08-29] MEDS: LOSARTAN 50 MG TAB PO SCH (08:51)
[2017-08-29 12:00] VITALS: BP 148/67; PULSE 66; RESP 17; TEMP 98.3; O2SAT 100
--- NOTE | 2017-08-29 13:33 | HHI.FF ---
Face to Face Verification Diagnosis: (1) GI bleed (2) Generalized weakness Physical Therapy Order: Evaluate and Treat, Improve ambulation, Strength and gait training Home Health Nursing Order: Signs/symptoms of disease process Nursing assessment with vital signs I have seen patient Lottie Gonzalez on 08/29/17. My clinical findings support the need for the requested home health care services because: Weakness in a Generalized Manner. Markedly limited mobility without assistance. Ltd mobility - disease progression Limited ability to care for self High risk of falls I certify that my clinical findings support that this patient is homebound because: Impaired cognitive ability/safety Unsteady gait/balance Unsafe to leave home unassisted Sen Abdullahi MD Aug 29, 2017 13:33
[2017-08-29 16:00] VITALS: BP 146/75; PULSE 69; RESP 17; TEMP 97.9; O2SAT 95
[2017-08-29] MEDS: QUEtiapine FUMARATE 25 MG TAB PO SCH (19:53)
[2017-08-29] MEDS: QUEtiapine FUMARATE 200 MG TAB PO SCH (19:53)
[2017-08-29] MEDS: DONEPEZIL HCL 5 MG TAB PO SCH (19:53)
[2017-08-29] MEDS: traZODone HCL 50 MG TAB PO SCH (19:54)
[2017-08-29 20:00] VITALS: BP 168/76; PULSE 65; RESP 20; TEMP 99; O2SAT 97
[2017-08-30 00:47] VITALS: BP 161/81; PULSE 78; RESP 20; TEMP 98.4; O2SAT 96
[2017-08-30 08:00] VITALS: BP 154/72; PULSE 72; RESP 17; TEMP 98.2; O2SAT 93
[2017-08-30] MEDS: POLYETHYLENE GLYCOL 17 GM PKG PO SCH (09:00)
[2017-08-30] MEDS: DOCUSATE SODIUM 50 MG/SENNA 8.6 MG TAB PO SCH (09:00)
[2017-08-30] MEDS: SODIUM CHLORIDE 0.9% FLUSH 10 ML FLUSH IV FLUSH SCH (09:22)
[2017-08-30] MEDS: TOLTERODINE TARTRATE 2 MG CAP LA PO SCH (09:23)
[2017-08-30] MEDS: CITALOPRAM HYDROBROMIDE 40 MG TAB PO SCH (09:23)
[2017-08-30] MEDS: PANTOPRAZOLE SOD 40 MG DELAYED RELEASE TAB PO SCH (09:23)
[2017-08-30] MEDS: amLODIPine BESYLATE 5 MG TAB PO SCH (09:24)
[2017-08-30] MEDS: MEMANTINE HCL 10 MG TAB PO SCH (09:24)
[2017-08-30] MEDS: LOSARTAN 50 MG TAB PO SCH (09:24)
[2017-08-30 12:00] VITALS: BP 146/76; PULSE 77; RESP 17; TEMP 97.5; O2SAT 94
[2017-08-30] MEDS ORDERED: PANT40TA3 PO (12:24)
--- NOTE | 2017-08-30 12:28 | HHI.PR ---
Subjective Remarks This patient's case was discussed with the nurse. She had a bowel movement and she has not shown anymore blood passage per the rectum. She appears to be tolerating the current medication regimen well. Objective - Vital Signs Date Time Temp Pulse Resp B/P (MAP) Pulse Ox O2 Delivery O2 Flow Rate FiO2 08/30/17 12:00 97.5 77 17 146/76 (99) 94 08/30/17 08:00 98.2 72 17 154/72 (99) 93 08/30/17 00:47 98.4 78 20 161/81 (107) 96 08/29/17 20:00 99.0 65 20 168/76 (106) 97 08/29/17 16:00 97.9 69 17 146/75 (98) 95 I/O 08/29/17 08/29/17 08/29/17 08/30/17 08/30/17 08/30/17 07:00 15:00 23:00 07:00 15:00 23:00 Intake Total 580 ml 360 ml 480 ml Balance 580 ml 360 ml 480 ml Intake Oral 580 ml 360 ml 480 ml # Voids 3 3 3 # Bowel Movements 0 1 Result Diagram: 08/29/17 0414 08/29/17 0414 A/P Assessment and Plan ASSESSMENT 1. Acute Gastrointestinal Bleed-red blood per the rectum-appears stable. 2. Acute Blood Loss Anemia-status post blood transfusions. 3. Gallbladder Mass-suspicious for cancer and known for several months. 4. Hypertension. 5. Dementia with Memory Loss. MEDICALLY IMPROVED STATUS PLAN 1. To monitor the stability of the blood counts. 2. Gastroenterology disposition is given. 3. Laboratory assessment to follow for stability. 4. Diet and Activity advanced. 5. DVT, PE and PUD prophylaxis. HOME TODAY WITH HOME HEALTH CARE Sen Abdullahi MD Aug 30, 2017 12:28
== END 2017-08-30 14:33 | disposition home health service (06) | DRG 378 ==
LOC: NEPE 22:45 → NEDA 08-24 02:52 → NEPHCDU 08-24 04:32 → OBSVTOIN 08-24 10:35 → N07B 08-24 16:57
PROVIDERS: ADMIT Internal Medicine; ATTEND Internal Medicine
PROC: 30233N1 Transfusion of Nonautologous Red Blood Cells into Peripheral Vein, Percutaneous Approach (ICD-10-PCS; 2017-08-24)
PROC: 0DB68ZX Excision of Stomach, Via Natural or Artificial Opening Endoscopic, Diagnostic (ICD-10-PCS; principal; 2017-08-26 12:15)
PROC: 0DJD8ZZ Inspection of Lower Intestinal Tract, Via Natural or Artificial Opening Endoscopic (ICD-10-PCS; 2017-08-26 12:15)
DX: K92.1 Melena (principal); D62 Acute posthemorrhagic anemia; F03.90 Unspecified dementia, unspecified severity, without behavioral disturbance, psychotic disturbance, mood disturbance, and anxiety; K29.70 Gastritis, unspecified, without bleeding; K64.8 Other hemorrhoids; K64.4 Residual hemorrhoidal skin tags; K57.30 Diverticulosis of large intestine without perforation or abscess without bleeding; I12.9 Hypertensive chronic kidney disease with stage 1 through stage 4 chronic kidney disease, or unspecified chronic kidney disease; N18.2 Chronic kidney disease, stage 2 (mild); K82.9 Disease of gallbladder, unspecified; E78.5 Hyperlipidemia, unspecified; M19.90 Unspecified osteoarthritis, unspecified site; S92.901D Unspecified fracture of right foot, subsequent encounter for fracture with routine healing
CPT/HCPCS: 36430; 74177; 74270; 78278; 80048; 83690; 83735; 85007; 85014; 85018; 85027; 85610; 85730; 86850; 86900; 86901; 86920; 88305; 88312; 93005; 96365; A9560; C9113; J1642; J1940; J3480; J7050; P9016; Q9967

== ENCOUNTER 2018-01-26 16:30 | Emergency (ER) | payer MEDICARE ==
[~2018-01-26] VITALS: Ht 167.6 cm; Wt 80.0 kg
[~2018-01-26 16:30] MED LIST changes: -CYAN1TAB24 PO; +DICL75TA PO; +DONE10TA7 PO; -FOLI1CAP7 PO; -KRIL1CAP9 PO; +PANT40TA3 PO; -QUET-88 PO; +QUET1TAB9 PO; +TRAZ50TA12 PO; -WHEEMIS3; +ZOCO20TA PO; -ZOCO40TA PO
[2018-01-26 16:49] VITALS: BP 139/66; PULSE 87; RESP 20; TEMP 98.2; O2SAT 96
[2018-01-26] MEDS ORDERED: SODIUM CHLOR 0.9% 1000 ML INJ 1,000 ML IV ONE (17:31)
--- NOTE | 2018-01-26 17:34 | PD ---
HPI Chief Complaint: General Weakness Time Seen by Provider: 17:25 Travel History International Travel<30 days: No Contact w/Intl Traveler<30days: No Traveled to known affect area: No History of Present Illness HPI 87-year-old female with history of hypertension, COPD, dementia, presents emergency department with her daughters for evaluation of altered mental status. They state the patient has had a decreased appetite over the last 4 days. She has not been wanting to eat. She has not been wanting to get up. She has been sleeping more often. She has had no fever or chills. They contacted the patient's primary care provider who advised they come in just to make sure that she has not had an intracranial bleed or some abnormal lab finding. The patient reports sore throat. States that she has no other pain. There are no other symptoms to report. PFSH Past Medical History Arthritis: Yes Asthma: No Autoimmune Disease: No Blood Disorders: No Anxiety: Yes Depression: Yes Heart Rhythm Problems: No Cancer: No Cardiovascular Problems: No High Cholesterol: No Chemotherapy: No Chest Pain: No Congestive Heart Failure: No COPD: Yes Cerebrovascular Accident: No Diabetes: No Diminished Hearing: No Endocrine: No GERD: Yes (gall bladder problems with abdomenal cramps at times) Genitourinary: No Hiatal Hernia: No Hypertension: Yes Immune Disorder: No Kidney Stones: No Musculoskeletal: Yes (problems walking) Neurologic: Yes (dementia ) Psychiatric: No Reproductive: No Respiratory: Yes Migraines: No Radiation Therapy: No Renal Failure: No Seizures: No Sickle Cell Disease: No Sleep Apnea: No Thyroid Disease: No Ulcer: No ?: Not Menopausal: Yes Past Surgical History Abdominal Surgery: No AICD: No Arteriovenous Shunt: No Cardiac Surgery: No Ear Surgery: No Endocrine Surgery: No Eye Surgery: No Genitourinary Surgery: Yes (hysterectomy) Gynecologic Surgery: Yes (hysterectomy) Hysterectomy: Yes (70's) Insulin Pump: No Joint Replacement: No Neurologic Surgery: No Oral Surgery: No Pacemaker: No Thoracic Surgery: No Other Surgery: Yes (HYSTERECTOMY, HEMORROIDS) Social History Alcohol Use: No Tobacco Use: No Substance Use: No Allergies-Medications (Allergen,Severity, Reaction): Coded Allergies: penicillin G (Unverified Allergy, Severe, Rash, 01/26/18) Reported Meds & Prescriptions Reported Meds & Active Scripts Active Levaquin (Levofloxacin) 500 Mg Tablet 500 Mg PO DAILY 7 Days Pantoprazole (Pantoprazole Sodium) 40 Mg Tab 40 Mg PO DAILY 30 Days Valium (Diazepam) 2 Mg Tab 2 Mg PO HS PRN Reported Vitamin B-12 (Cyanocobalamin) 1,000 Mcg Tab 1,000 Mcg PO DAILY Folic Acid 0.4 Mg Tab 400 Mcg PO DAILY Vitamin D3 (Cholecalciferol) 1,000 Unit Tab 1,000 Units PO DAILY Centrum Silver (Multiple Vitamins W/ Minerals) 400 Mcg-250 Mcg Chw 1 Tab PO DAILY Zantac (Ranitidine HCl) 150 Mg Tab 150 Mg PO BID Myrbetriq (Mirabegron) 50 Mg Tab 50 Mg PO DAILY Seroquel (Quetiapine Fumarate) 25 Mg Tab 225 Mg PO HS Take 1 tablet (25mg) with 200mg tablet for a total dose of 225mg Linzess (Linaclotide) 145 Mcg Cap 145 Mcg PO DAILY Quetiapine (Quetiapine Fumarate) 200 Mg Tab 225 Mg PO HS Take 1 tablet (200mg) with 25mg tablet for a total dose of 225mg Zocor (Simvastatin) 20 Mg Tab 20 Mg PO DAILY Amlodipine (Amlodipine Besylate) 5 Mg Tab 5 Mg PO DAILY Losartan (Losartan Potassium) 100 Mg Tab 100 Mg PO DAILY Citalopram (Citalopram Hydrobromide) 40 Mg Tab 40 Mg PO DAILY Memantine 10 Mg Tab 10 Mg PO BID Review of Systems Except as stated in HPI: all other systems reviewed are Neg Physical Exam Narrative GENERAL: Well-nourished elderly female patient, lying in bed appears in no acute distress. SKIN: Focused skin assessment warm/dry. 10 cm x 12 cm stage II pressure ulcer on the sacrum. HEAD: Atraumatic. Normocephalic. EYES: Pupils equal and round. No scleral icterus. No injection or drainage. ENT: No nasal bleeding or discharge. Mucous membranes pink and moist. NECK: Trachea midline. No JVD. CARDIOVASCULAR: Regular rate and rhythm. 2/6 systolic murmur RESPIRATORY: No accessory muscle use. Diminished, coarse to auscultation. Breath sounds equal bilaterally. GASTROINTESTINAL: Abdomen soft, non-tender, nondistended. No rebound tenderness. No guarding. Hepatic and splenic margins not palpable. MUSCULOSKELETAL: No obvious deformities. No clubbing. No cyanosis. No edema. NEUROLOGICAL: Awake and alert. Unable to assess cranial nerves. Patient does move extremities spontaneously. Normal speech. Data Data Last Documented VS Vital Signs Date Time Temp Pulse Resp B/P (MAP) Pulse Ox O2 Delivery O2 Flow Rate FiO2 01/26/18 19:07 85 23 164/77 (106) 93 Room Air 01/26/18 16:49 98.2 Orders Orders Electrocardiogram (01/26/18 17:31) Complete Blood Count With Diff (01/26/18 17:31) Comprehensive Metabolic Panel (01/26/18 17:31) Magnesium (Mg) (01/26/18 17:31) Act Partial Throm Time (Ptt) (01/26/18 17:31) Prothrombin Time / Inr (Pt) (01/26/18 17:31) Urinalysis - C+S If Indicated (01/26/18 17:31) Chest, Single Ap (01/26/18 17:31) Ct Brain W/O Iv Contrast(Rout) (01/26/18 17:31) Ecg Monitoring (01/26/18 17:31) Iv Access Insert/Monitor (01/26/18 17:31) Oximetry (01/26/18 17:31) Sodium Chloride 0.9% Flush (Ns Flush) (01/26/18 17:45) Sodium Chlor 0.9% 1000 Ml Inj (Ns 1000 M (01/26/18 17:31) Abdomen, Upright Only (01/26/18 ) Group A Rapid Strep Screen (01/26/18 17:31) Cath For Specimen (01/26/18 17:31) Urine Culture (01/26/18 18:05) Strep Culture (Group A) (01/26/18 18:05) Ceftriaxone Inj (Rocephin Inj) (01/26/18 19:15) Ed Discharge Order (01/26/18 20:14) Labs Laboratory Tests Test 01/26/18 18:05 White Blood Count 10.3 TH/MM3 Red Blood Count 4.15 MIL/MM3 Hemoglobin 9.4 GM/DL Hematocrit 30.4 % Mean Corpuscular Volume 73.2 FL Mean Corpuscular Hemoglobin 22.6 PG Mean Corpuscular Hemoglobin Concent 30.8 % Red Cell Distribution Width 18.5 % Platelet Count 462 TH/MM3 Mean Platelet Volume 7.8 FL Neutrophils (%) (Auto) 71.5 % Lymphocytes (%) (Auto) 15.8 % Monocytes (%) (Auto) 12.7 % Eosinophils (%) (Auto) 0.0 % Basophils (%) (Auto) 0.0 % Neutrophils # (Auto) 7.3 TH/MM3 Lymphocytes # (Auto) 1.6 TH/MM3 Monocytes # (Auto) 1.3 TH/MM3 Eosinophils # (Auto) 0.0 TH/MM3 Basophils # (Auto) 0.0 TH/MM3 CBC Comment DIFF FINAL Differential Comment Prothrombin Time 10.9 SEC Prothromb Time International Ratio 1.1 RATIO Activated Partial Thromboplast Time 27.5 SEC Urine Color YELLOW Urine Turbidity HAZY Urine pH 5.0 Urine Specific O'Brien 1.017 Urine Protein NEG mg/dL Urine Glucose (UA) NEG mg/dL Urine Ketones NEG mg/dL Urine Occult Blood NEG Urine Nitrite POS Urine Bilirubin NEG Urine Urobilinogen 4.0 OR GREATER mg/dL Urine Leukocyte Esterase TRACE Urine RBC 1 /hpf Urine WBC 4 /hpf Urine Squamous Epithelial Cells 6 /hpf Urine Bacteria MANY /hpf Urine Hyaline Casts 1 /lpf Urine Mucus FEW /lpf Microscopic Urinalysis Comment CATH-CULTURE IND Blood Urea Nitrogen 22 MG/DL Creatinine 0.98 MG/DL Random Glucose 141 MG/DL Total Protein 7.7 GM/DL Albumin 2.1 GM/DL Calcium Level 10.5 MG/DL Magnesium Level 2.1 MG/DL Alkaline Phosphatase 687 U/L Aspartate Amino Transf (AST/SGOT) 33 U/L Alanine Aminotransferase (ALT/SGPT) 33 U/L Total Bilirubin 0.4 MG/DL Sodium Level 139 MEQ/L Potassium Level 3.9 MEQ/L Chloride Level 106 MEQ/L Carbon Dioxide Level 22.9 MEQ/L Anion Gap 10 MEQ/L Estimat Glomerular Filtration Rate 65 ML/MIN [facility] Medical Decision Making Medical Screen Exam Complete: Yes Emergency Medical Condition: Yes Medical Record Reviewed: Yes Differential Diagnosis UTI versus electrolyte abnormality versus dehydration versus pneumonia versus sepsis versus intracranial hemorrhage versus CVA Narrative Course 87-year-old female presents emergency department for evaluation. Patient appears without distress. Her vital signs are stable. Patient does report a sore throat, but has no other complaints. Laboratory Tests Test 01/26/18 18:05 White Blood Count 10.3 TH/MM3 Red Blood Count 4.15 MIL/MM3 Hemoglobin 9.4 GM/DL Hematocrit 30.4 % Mean Corpuscular Volume 73.2 FL Mean Corpuscular Hemoglobin 22.6 PG Mean Corpuscular Hemoglobin Concent 30.8 % Red Cell Distribution Width 18.5 % Platelet Count 462 TH/MM3 Mean Platelet Volume 7.8 FL Neutrophils (%) (Auto) 71.5 % Lymphocytes (%) (Auto) 15.8 % Monocytes (%) (Auto) 12.7 % Eosinophils (%) (Auto) 0.0 % Basophils (%) (Auto) 0.0 % Neutrophils # (Auto) 7.3 TH/MM3 Lymphocytes # (Auto) 1.6 TH/MM3 Monocytes # (Auto) 1.3 TH/MM3 Eosinophils # (Auto) 0.0 TH/MM3 Basophils # (Auto) 0.0 TH/MM3 CBC Comment DIFF FINAL Differential Comment Prothrombin Time 10.9 SEC Prothromb Time International Ratio 1.1 RATIO Activated Partial Thromboplast Time 27.5 SEC Urine Color YELLOW Urine Turbidity HAZY Urine pH 5.0 Urine Specific O'Brien 1.017 Urine Protein NEG mg/dL Urine Glucose (UA) NEG mg/dL Urine Ketones NEG mg/dL Urine Occult Blood NEG Urine Nitrite POS Urine Bilirubin NEG Urine Urobilinogen 4.0 OR GREATER mg/dL Urine Leukocyte Esterase TRACE Urine RBC 1 /hpf Urine WBC 4 /hpf Urine Squamous Epithelial Cells 6 /hpf Urine Bacteria MANY /hpf Urine Hyaline Casts 1 /lpf Urine Mucus FEW /lpf Microscopic Urinalysis Comment CATH-CULTURE IND Blood Urea Nitrogen 22 MG/DL Creatinine 0.98 MG/DL Random Glucose 141 MG/DL Total Protein 7.7 GM/DL Albumin 2.1 GM/DL Calcium Level 10.5 MG/DL Magnesium Level 2.1 MG/DL Alkaline Phosphatase 687 U/L Aspartate Amino Transf (AST/SGOT) 33 U/L Alanine Aminotransferase (ALT/SGPT) 33 U/L Total Bilirubin 0.4 MG/DL Sodium Level 139 MEQ/L Potassium Level 3.9 MEQ/L Chloride Level 106 MEQ/L Carbon Dioxide Level 22.9 MEQ/L Anion Gap 10 MEQ/L Estimat Glomerular Filtration Rate 65 ML/MIN Last Impressions Head CT 01/26/181730 Signed Impressions: CONCLUSION: 1. No acute intracranial abnormalities. White matter ischemic changes. Chest X-Ray 01/26/181730 Signed Impressions: CONCLUSION: Left basilar lung consolidation with effusion. Trace right pleural fluid. Abdomen X-Ray 01/26/18 0000 Signed Impressions: CONCLUSION: Nonspecific bowel gas pattern without evidence for obstruction or free air. Sma ll effusions and left basilar airspace disease. I discussed the patient with my attending physician. Patient does not have a white count. She has been afebrile. The family is comfortable taking her home and can follow-up with her primary care provider. Patient will be started on Levaquin and discharged at this time. They agreed return immediately with acute worsening symptoms. Diagnosis Primary Impression: Altered mental status Qualified Codes: R41.82 - Altered mental status, unspecified Additional Impressions: UTI (urinary tract infection) Qualified Codes: N39.0 - Urinary tract infection, site not specified; R31.9 - Hematuria, unspecified Pneumonia Qualified Codes: J18.1 - Lobar pneumonia, unspecified organism Referrals: Primary Care Physician Patient Instructions: Altered Mental Status (ED), General Instructions, Urinary Tract Infection in Women (ED) Additional Instructions: Maintain adequate oral hydration Follow up with your attending physician Return immediately with acute worsening of symptoms Med/Other Pt SpecificInfo: Prescription(s) given Scripts Levofloxacin (Levaquin) 500 Mg Tablet 500 MG PO DAILY for Infection for 7 Days, #7 TAB 0 Refills Prov: Karen Cai 01/26/18 Disposition: 01 DISCHARGE HOME Condition: Stable Karen Cai Jan 26, 2018 17:34
[2018-01-26] MEDS ORDERED: SODIUM CHLORIDE 0.9% FLUSH 10 ML FLUSH IVF PRN (17:45)
[2018-01-26 18:09] VITALS: O2SAT 98
[2018-01-26 18:30] LABS: AUTOMATED NEUTROPHIL # 7.3 TH/MM3 (1.8-7.7); HEMATOCRIT 30.4 % (35.0-46.0); HEMOGLOBIN 9.4 GM/DL (11.6-15.3); LYMPH % 15.8 % (9.0-44.0); LYMPHOCYTE # 1.6 TH/MM3 (1.0-4.8); MEAN CELL VOLUME 73.2 FL (80.0-100.0); MEAN CORPUSCULAR HEMOGLOBIN 22.6 PG (27.0-34.0); MEAN CORPUSCULAR HGB CONC 30.8 % (32.0-36.0); MEAN PLATELET VOLUME 7.8 FL (7.0-11.0); MONO % 12.7 % (0.0-8.0); MONOCYTE # 1.3 TH/MM3 (0-0.9); NEUT % 71.5 % (16.0-70.0); PLATELET COUNT 462 TH/MM3 (150-450); RED BLOOD COUNT 4.15 MIL/MM3 (4.00-5.30); RED CELL DISTRIBUTION WIDTH 18.5 % (11.6-17.2); WHITE BLOOD COUNT 10.3 TH/MM3 (4.0-11.0)
--- NOTE | 2018-01-26 18:35 | RADRPT ---
EXAM DATE: 01/26/2018 6:30 PM EDT AGE/SEX: 87 years / Female INDICATIONS: Altered mental status. CLINICAL DATA: This is the patient's initial encounter. Patient reports that signs and symptoms have been present for 1 day and indicates a pain score of 0/10. MEDICAL/SURGICAL HISTORY: Hypertension. Hysterectomy. RADIATION DOSE: 56.35 CTDI (mGy) COMPARISON: No prior exams available for comparison. TECHNIQUE: CT of the head without contrast. Using automated exposure control and adjustment of the mA and/or kV according to patient size, radiation dose was kept as low as reasonably achievable to ob tain optimal diagnostic quality images. DICOM format image data is available electronically for revi ew and comparison. FINDINGS: Cerebrum: The ventricles are normal for age. No evidence of midline shift, mass lesion, hemorrhage or acute infarction. No extraaxial fluid collections are seen. Posterior Fossa: The cerebellum and brainstem are intact. The 4th ventricle is midline. The cerebe llopontine angle is unremarkable. Extracranial: The visualized portion of the orbits is intact. Skull: The calvaria is intact. No evidence of skull fracture. CONCLUSION: 1. No acute intracranial abnormalities. White matter ischemic changes. Electronically signed by: Jeffrey Monzon MD 01/26/2018 6:34 PM EDT
[2018-01-26 18:45] LABS: BACTERIA, URINE MANY /hpf; BILIRUBIN, URINE NEG (NEG); BLOOD, URINE NEG (NEG); GLUCOSE,URINE NEG (NEG); HYALINE CAST, URINE 1 /lpf (RARE); KETONE, URINE NEG (NEG); MUCUS URINE FEW /lpf (OCC); NITRITE,URINE POS (NEG); SQUAMOUS EPITHELIAL CELL URINE 6 /hpf (0-5); URINE COLOR YELLOW (YELLW/STRAW); URINE LEUKOCYTE ESTERASE TRACE (NEG)
[2018-01-26] MEDS ORDERED: ZANT150T2 PO (18:52)
[2018-01-26] MEDS ORDERED: LINA145C PO (18:52)
[2018-01-26] MEDS ORDERED: FOLI400T PO (18:52)
[2018-01-26] MEDS ORDERED: VITA100064 PO (18:52)
[2018-01-26] MEDS ORDERED: CENTCHW3 PO (18:52)
[2018-01-26] MEDS ORDERED: VITA10002 PO (18:52)
[2018-01-26] MEDS ORDERED: MIRA50TA PO (18:52)
[2018-01-26] MEDS ORDERED: SERO25TA PO (18:52)
--- NOTE | 2018-01-26 18:53 | RADRPT ---
EXAM DATE: 01/26/2018 6:00 PM EDT AGE/SEX: 87 years / Female INDICATIONS: Abdomen pain CLINICAL DATA: This is the patient's initial encounter. Patient reports that signs and symptoms have been present for 2 weeks and indicates a pain score of 7/10. MEDICAL/SURGICAL HISTORY: Gastroesophageal reflux disease. Hypertension. Hysterectomy. COMPARISON: No prior exams available for comparison. FINDINGS: A single erect view of the abdomen demonstrates left basilar airspace disease and small left effusion . Trace right pleural fluid. No evidence of free intraperitoneal gas. The visualized bowel loops are unremarkable. CONCLUSION: Nonspecific bowel gas pattern without evidence for obstruction or free air. Small effusions and left basilar airspace disease. Electronically signed by: Jeffrey Monzon MD 01/26/2018 6:52 PM EDT
--- NOTE | 2018-01-26 18:53 | RADRPT ---
EXAM DATE: 01/26/2018 5:58 PM EDT AGE/SEX: 87 years / Female INDICATIONS: Short of breath CLINICAL DATA: This is the patient's initial encounter. Patient reports that signs and symptoms have been present for 2 weeks and indicates a pain score of 0/10. MEDICAL/SURGICAL HISTORY: . Hypertension. Gastroesophageal reflux disease. . Hysterectomy COMPARISON: No prior exams available for comparison. FINDINGS: There is left basilar consolidation. Probable left effusion and small right effusion. Heart size mild ly enlarged. No pneumothorax. CONCLUSION: Left basilar lung consolidation with effusion. Trace right pleural fluid. Electronically signed by: Jeffrey Monzon MD 01/26/2018 6:51 PM EDT
[2018-01-26 18:57] LABS: ALBUMIN 2.1 GM/DL (3.4-5.0); AST (GOT) 33 U/L (15-37); BICARBONATE 22.9 MEQ/L (21.0-32.0); BLOOD UREA NITROGEN 22 MG/DL (7-18); CALCIUM 10.5 MG/DL (8.5-10.1); CHLORIDE 106 MEQ/L (98-107); CREATININE 0.98 MG/DL (0.50-1.00); GLOMERULAR FILTRATION RATE 65 ML/MIN (>89); GLUCOSE,RANDOM 141 MG/DL (74-106); MAGNESIUM 2.1 MG/DL (1.5-2.5); SODIUM (NA) 139 MEQ/L (136-145)
[2018-01-26 18:58] LABS: ALT (GPT) 33 U/L (10-53)
[2018-01-26 19:00] LABS: ALKALINE PHOSPHATASE 687 U/L (45-117); TOTAL BILIRUBIN ADULT 0.4 MG/DL (0.2-1.0); TOTAL PROTEIN 7.7 GM/DL (6.4-8.2)
[2018-01-26 19:05] LABS: INTERNATIONAL NORMALIZED RATIO 1.1 RATIO; PROTHROMBIN TIME - PATIENT 10.9 SEC (9.8-11.6)
[2018-01-26 19:07] VITALS: BP 164/77; PULSE 85; RESP 23; O2SAT 93
[2018-01-26] MEDS ORDERED: cefTRIAXone INJ 1,000 MG in SODIUM CHLORIDE 0.9% INJ 100 ML IV ONE (19:15)
[2018-01-26] MEDS ORDERED: LEVA500T33 PO (20:19)
--- NOTE | 2018-01-27 23:17 | EKG ---
Date Performed: 01/26/2018 Time Performed: 18:12:38 PTAGE: 87 years EKG: Sinus rhythm WITH FIRST DEGREE AV BLOCK LOW QRS VOLTAGE IN EXTREMITY LEADS POSSIBLE ANTERIOR MYOCARDIAL INFARCTIO N ST ELEVATION INFERIORLY, CLINICAL CORRELATION, MOST LIKELY NOT STEMI CRITERIA PREVIOUS TRACING : 08/25/2017 18.12 Compared to previous tracing, non-specific inferior ST elevation noted DOCTOR: Andreas Lozano Interpretating Date/Time 01/27/2018 23:16:17
== END 2018-01-26 21:24 | disposition home or self-care (01) ==
LOC: NEPC 16:30
DX: R41.82 Altered mental status, unspecified (principal); N39.0 Urinary tract infection, site not specified; J18.1 Lobar pneumonia, unspecified organism; R07.0 Pain in throat; L89.152 Pressure ulcer of sacral region, stage 2; I44.0 Atrioventricular block, first degree; B96.20 Unspecified Escherichia coli [E. coli] as the cause of diseases classified elsewhere; B96.89 Other specified bacterial agents as the cause of diseases classified elsewhere; I10 Essential (primary) hypertension; F03.90 Unspecified dementia, unspecified severity, without behavioral disturbance, psychotic disturbance, mood disturbance, and anxiety; F41.8 Other specified anxiety disorders; K21.9 Gastro-esophageal reflux disease without esophagitis; Z79.899 Other long term (current) drug therapy; Z87.09 Personal history of other diseases of the respiratory system; Z87.39 Personal history of other diseases of the musculoskeletal system and connective tissue
CPT/HCPCS: 70450; 71045; 74018; 80053; 81001; 83735; 85025; 85610; 85730; 87077; 87081; 87086; 87186; 87880; 93005; 96374; 99285; J0696; J7030